=== PATIENT | female | born 1955 | race Caucasian/White ===

== ENCOUNTER 2017-10-01 12:23 | Outpatient (CLI) | payer OTHER ==
--- NOTE | 2017-10-01 13:15 | MMO ---
BILATERAL SCREENING MAMMOGRAM: DATE: 10/01/17 HISTORY: 62-year-old female for baseline screening mammography. COMPARISON: None. FINDINGS: Bilateral MLO and CC views of the breasts show heterogeneously dense breast parenchyma, which may low er the sensitivity of mammography. There is no evidence of suspicious mass, suspicious cluster of michelle rocalcifications, or area of architectural distortion. Interpretation of this mammogram was performed with the assistance of computer-aided detection. IMPRESSION: BIRADS 1: Negative Annual screening mammography is recommended. POS: SEVERO
== END 2017-10-01 12:24 | disposition home or self-care (01) ==
LOC: SCSMAMMO 12:23
PROVIDERS: ATTEND Family Medicine
DX: Z12.31 Encounter for screening mammogram for malignant neoplasm of breast (principal)
CPT/HCPCS: 77067

== ENCOUNTER 2017-12-19 11:59 | Inpatient (IN) | payer OTHER ==
[2017-12-19] MEDS ORDERED: Dexamethasone 10 MG/ML VIAL ONE (12:39)
[2017-12-19 12:52] LABS: Band 18 % (5-11); Hemoglobin 12.2 g/dL (12.0-16.0); Lymphocytes 5 % (21-51); MDiff Complete? YES; Mean Corpuscular HGB CONC 35.4 g/dL (32.0-36.0); Mean Corpuscular Hemoglobin 31.2 pg (27.0-31.0); Mean Corpuscular Volume 87.9 fL (78.0-98.0); Mean Platelet Volume 6.8 fL (7.4-10.4); Monocytes 28 % (0-10); Neutrophil 47 % (42-75); PLT Morphology Comment Appears Adequate; Platelet Count 241 thou/uL (130-400); RBC Distribution Width 9.6 % (11.5-14.5); Reactive Lymphocytes 1 % (0-10); Red Blood Cell (RBC) Count 3.92 mill/uL (4.20-5.40); White Blood Cell (WBC) Count 3.8 thou/uL (4.8-10.8)
[2017-12-19 12:55] LABS: ALT (SGPT) 17 U/L (8-55); AST (SGOT) 19 U/L (5-34); Albumin 3.7 g/dL (3.4-4.8); Alkaline Phosphatase 58 U/L (40-150); Anion Gap 15 mmol/L (10-20); BUN (Urea Nitrogen) 19 mg/dL (9.8-20.1); Bilirubin, Total 0.6 mg/dL (0.2-1.2); Calc. Creatinine Clearance 0 mL/min (70-130); Calcium 9.2 mg/dL (7.8-10.44); Carbon Dioxide 23 mmol/L (23-31); Chloride 95 mmol/L (98-107); Estimated GFR-MDRD 69; Globulin 3.2 g/dL (2.4-3.5); Glucose 111 mg/dL (80-115); Lipase 20 U/L (8-78); Potassium 3.2 mmol/L (3.5-5.1); Protein, Total 6.9 g/dL (6.0-8.3); Sodium 130 mmol/L (136-145)
[2017-12-19] MEDS ORDERED: D5 1/2 NS w/40 mEq KCL 1,000 ML IV SCH (15:30)
[2017-12-19] MEDS ORDERED: Senokot 8.6 MG TAB PO PRN (17:36)
[2017-12-19] MEDS ORDERED: Milk Of Magnesia 30 ML UDCUP PO PRN (17:36)
[2017-12-19] MEDS: Fluconazole In NaCl,Iso-Osm 100 MG IVPB SCH (18:12)
[2017-12-19] MEDS: Aluminum & Magnesium Hydroxide 60 ML, Lidocaine 2% Viscous Solution 30 ML, diphenhydrAM... SSW PRN (19:05)
[2017-12-19] MEDS: D5 NS w/ 40 mEq KCl 1,000 ML IV SCH (19:44)
[2017-12-19] MEDS: Acyclovir 200 mg Capsule PO SCH (19:46)
--- NOTE | 2017-12-19 20:13 | HP ---
DATE OF ADMISSION: 12/19/2017 PRIMARY CARE PHYSICIAN: Dr. Yoon Palomo. PRIMARY DRY ROOM ATTENDANT: Dr. Dias. CHIEF COMPLAINT: Near syncopal episode. HISTORY OF PRESENT ILLNESS: The patient is a 62-year-old female with systemic lupus erythematosus, o n chronic steroids and Plaquenil, presented to the emergency room with above complaints. The patient was on Benlysta weekly for a total of 4 weeks until 2 weeks ago. Over the last 2 weeks, the patient has severe difficulty with swallowing or taking p.o. fluid. She has also lost significant weight. Overall, she has lost 25 pounds over the last 6 months. Over the last 2 weeks, she started with oral ulcerations that is progressively getting worse. She tried lidocaine rinse that only transiently he ld. Two days ago, she was started on nystatin. This morning, she had a near syncopal episode while she was taking a shower. She almost blacked out. No significant injuries reported. She denies any chest pain, palpitations or focal neurologic deficit. She then was brought into the emergency room. In the emergency room, her initial blood pressure was 79/50. She received 2 liters of IV fluid along with 5 mg Decadron. The patient denies any fever, chills, joint pain or morning stiffness. No naus ea, vomiting, or abdominal pain reported. Her bowel movements are normally loose. She denies any ot her skin rash. PAST MEDICAL HISTORY: 1. Systemic lupus erythematosus. 2. History of herpes zoster last year. 3. Irritable bowel syndrome. 4. Raynaud's phenomena. 5. Anxiety and depression. PAST SURGICAL HISTORY: 1. Hysterectomy at the age of 43. 2. section at age of 23. ALLERGIES: The patient is allergic to PENICILLIN and SULFA. CURRENT HOME MEDICATIONS: The patient is currently on Plaquenil and prednisone. She is unable to re call the exact dosages of those medications. FAMILY HISTORY: Father with abdominal aneurysm. Mother has melanoma of the salivary gland. SOCIAL HISTORY: She is a former smoker. She drinks alcohol occasionally. She lives alone and has g ood family support. CODE STATUS: She is FULL CODE and makes her own decision with the help of her family. REVIEW OF SYSTEMS: The following complete review of systems was negative, unless otherwise mentioned in the HPI or below: Constitutional: Weight loss or gain, ability to conduct usual activities. Skin: Rash, itching. Eyes: Double vision, pain. ENT/Mouth: Nose bleeding, neck stiffness, pain, tenderness. Cardiovascular: Palpitations, dyspnea on exertion, orthopnea. Respiratory: Shortness of breath, wheezing, cough, hemoptysis, fever or night sweats. Gastrointestinal: Poor appetite, abdominal pain, heartburn, nausea, vomiting, constipation, or diarrhea. Genitourinary: Urgency, frequency, dysuria, nocturia. Musculoskeletal: Pain, swelling. Neurologic/Psychiatric: Anxiety, depression. Allergy/Immunologic: Skin rash, bleeding tendency. PHYSICAL EXAMINATION: VITAL SIGNS: In the emergency room showed temperature 98.8, respirations 16, pulse of 80, blood pres sure 79/50 with O2 saturation of 100% on room air. GENERAL: A 62-year-old female in mild distress due to discomfort over her lips and in her mouth. HEENT: Head atraumatic, normocephalic. Sclerae are anicteric. Erythematous lip with 2 or 3 vesicul ar lesions on the upper lip. There were white patches inside her mouth and on the tongue. She was u nable to open her mouth wide to visualize pharynx. NECK: Supple, no JVD, no carotid bruit. No lymph nodes noted. LUNGS: Clear to auscultation bilaterally. No wheezing, rales or rhonchi. HEART: S1, S2 present. Regular rate and rhythm. No rubs or gallops. ABDOMEN: Soft, nontender, bowel sounds present. EXTREMITIES: No edema or calf tenderness. NEUROLOGIC: Grossly nonfocal, moves all four extremities. PSYCHIATRY: Alert, awake, oriented x3. SKIN: Warm and dry. LYMPH NODES: No palpable lymph nodes in the neck. PERIPHERAL VASCULAR: Radial pulses palpable bilaterally. MUSCULOSKELETAL: No joint swelling or tenderness. LABORATORY DATA: CBC showed WBC 3.8 with hemoglobin 12.2, hematocrit 34.4, platelet count of 241 wit h 18% bandemia. Chemistry showed sodium 130, potassium 3.2, chloride 95, bicarbonate 23, BUN 19, cre atinine 0.84. LFTs in normal range. Lactic acid was 0.9. IMPRESSION: 1. Near syncopal episode, probably secondary to hypotension. 2. Oral lesion consistent with candidiasis. Herpes labialis is also a possibility. 3. Inability to tolerate oral intake causing dehydration and significant weight loss. 4. Leukopenia with 18% bandemia and significant monocytosis. 5. Hyponatremia, suspected secondary to hypovolemia. 6. Hypokalemia. 7. Systemic lupus erythematosus, on chronic steroids and Plaquenil. 8. Irritable bowel syndrome. 9. Depression without any suicidal ideation. PLAN: The patient will be monitored on the medical floor. Infectious Disease will be consulted. I discussed the case with the patient's literacy coordinator, Dr. Dias, as well as Infectious Disease, Dr. Dilip hanna. We will start her on fluconazole along with nystatin topical for oral candidiasis. We will em pirically start her on low dose acyclovir for possible herpes labialis. We will continue prednisone and Plaquenil. This was confirmed with Dr. Dias. We will continue IV hydration. We will replace p otassium. We will repeat labs in a.m. We will check orthostatic vitals in a.m. We will get a skin culture per Infectious Disease recommendation. Plan of care was discussed with the patient. She stated understanding.
[2017-12-19] MEDS: Nystatin 500,000 UNITS/5 ML UDCUP SSW SCH (21:45)
[2017-12-19] MEDS: Famotidine 20 MG TAB PO SCH (21:45)
[2017-12-20] MEDS: Acyclovir 200 mg Capsule PO SCH ×3 (00:38→14:00)
[2017-12-20] MEDS: D5 NS w/ 40 mEq KCl 1,000 ML IV SCH (04:00)
[2017-12-20 04:24] LABS: ALT (SGPT) 11 U/L (8-55); AST (SGOT) 11 U/L (5-34); Albumin 3.1 g/dL (3.4-4.8); Alkaline Phosphatase 50 U/L (40-150); Anion Gap 12 mmol/L (10-20); BUN (Urea Nitrogen) 11 mg/dL (9.8-20.1); Bilirubin, Total 0.3 mg/dL (0.2-1.2); Calc. Creatinine Clearance 76 mL/min (70-130); Calcium 7.9 mg/dL (7.8-10.44); Carbon Dioxide 20 mmol/L (23-31); Chloride 105 mmol/L (98-107); Estimated GFR-MDRD Greater than 90; Globulin 2.7 g/dL (2.4-3.5); Glucose 176 mg/dL (80-115); Magnesium 1.8 mg/dL (1.6-2.6); Potassium 4.3 mmol/L (3.5-5.1); Protein, Total 5.8 g/dL (6.0-8.3); Sodium 133 mmol/L (136-145)
[2017-12-20 04:37] LABS: Band 34 % (5-11); Hemoglobin 10.6 g/dL (12.0-16.0); Lymphocytes 6 % (21-51); MDiff Complete? YES; Mean Corpuscular HGB CONC 35.5 g/dL (32.0-36.0); Mean Corpuscular Hemoglobin 33.2 pg (27.0-31.0); Mean Corpuscular Volume 93.7 fL (78.0-98.0); Monocytes 15 % (0-10); Neutrophil 45 % (42-75); Platelet Count 244 thou/uL (130-400); RBC Distribution Width 10.7 % (11.5-14.5); Red Blood Cell (RBC) Count 3.19 mill/uL (4.20-5.40); White Blood Cell (WBC) Count 2.7 thou/uL (4.8-10.8)
[2017-12-20] MEDS: Dextrose 5 %-0.45 % NaCl 1,000 ML IV SCH ×2 (09:13→17:51)
[2017-12-20] MEDS: Nystatin 500,000 UNITS/5 ML UDCUP SSW SCH ×4 (09:15→21:57)
[2017-12-20] MEDS: Aluminum & Magnesium Hydroxide 60 ML, Lidocaine 2% Viscous Solution 30 ML, diphenhydrAM... SSW PRN ×3 (09:16→17:45)
[2017-12-20] MEDS: Hydroxychloroquine Sulfate 200 MG TAB PO SCH (09:17)
[2017-12-20] MEDS: Famotidine 20 MG TAB PO SCH ×2 (09:17→21:56)
[2017-12-20] MEDS: predniSONE 5 MG TAB PO SCH (09:17)
[2017-12-20] MEDS: K-Phos Neutral 250 MG TAB PO SCH ×2 (14:00→17:45)
[2017-12-20 16:28] LABS: Bilirubin Negative (Negative); Blood, Urine Small (Negative); Clarity CLEAR (Clear); Glucose, Urine (Dipstick) Negative (Negative); Leukocyte Moderate (Negative); Nitrite Negative (Negative); Protein, Urine (Dipstick) Trace mg/dL (Neg-Trace); Specific Gravity, Urine 1.016 (1.002-1.036); Urobilinogen 0.2 mg/dL (0.2-1.0)
[2017-12-20 16:31] LABS: Bacteria/HPF None Seen HPF (None Seen); Hyaline Casts/LPF 4-6 HYALINE CAST LPF (0-3 Hyaline); Pathc Cast-AUWi Flag 0.72 (0-2.49); Squamous Epithelial 0-3 HPF (0-3)
[2017-12-20 16:35] LABS: Renal Epithelial None Seen HPF (0-3); Transitional Epithelial NONE SEEN HPF (0-3)
[2017-12-20] MEDS: Fluconazole In NaCl,Iso-Osm 100 MG IVPB SCH (17:44)
[2017-12-20] MEDS: ACYCLOVIR SODIUM IVPB SCH (21:57)
[2017-12-20] MEDS: SODIUM CHLORIDE 0.9% IVPB SCH (21:57)
--- NOTE | 2017-12-20 22:40 | PDOC.PN ---
- Subjective Encounter Start Date: 12/20/17 Encounter Start Time: 14:00 Patient seen and examined for Hypotension/Oral lesions. No new complaints. Poor appetite. No overnight events - Objective Resuscitation Status: Resuscitation Status FULL:Full Resuscitation MAR Reviewed: Yes Vital Signs & Weight: Vital Signs (12 hours) Temp Pulse Resp BP Pulse Ox 12/20/17 20:00 98.3 F 68 18 131/68 99 12/20/17 16:00 97.8 F 68 18 107/67 99 12/20/17 11:00 97.9 F 69 18 108/64 100 Weight Weight 109 lb I&O: 12/19/17 12/20/17 12/21/17 06:59 06:59 06:59 Intake Total 1850 Balance 1850 Result Diagrams: 12/20/17 03:16 12/20/17 03:16 Phys Exam - Physical Examination Constitutional: NAD HEENT: moist MMs improvement of erythema over upper lip. Respiratory: no wheezing, no rhonchi Cardiovascular: RRR, no rub Gastrointestinal: soft, non-tender, positive bowel sounds Musculoskeletal: no edema Neurological: moves all 4 limbs Dx/Plan - Plan DVT proph w/SCDs IMPRESSION: 1. Near syncopal episode, probably secondary to hypotension. 2. Oral lesion consistent with candidiasis/Herpes labialis. 3. Inability to tolerate oral intake causing dehydration and significant weight loss. 4. Leukopenia with bandemia and significant monocytosis. 5. Hyponatremia- impoving 6. Hypokalemia/Hypophosphatemia 7. Systemic lupus erythematosus, on chronic steroids and Plaquenil. 8. Irritable bowel syndrome. 9. Depression without any suicidal ideation. PLAN: Cont Fluconazole Patient refusing Nystatin - causes more mouth irritation Replace Phosphorus Adjust IVF AM labs Await ID input Cont Acyclovir Laboratory Tests 12/20/17 03:16 Phosphorus 2.0 L Review of Systems - Review of Systems Cardiovascular: negative: chest pain, palpitations, orthopnea, paroxysmal nocturnal dyspnea, edema, light headedness, other Gastrointestinal: negative: Nausea, Vomiting, Abdominal Pain, Diarrhea, Constipation, Melena, Hematochezia, Other - Medications/Allergies Allergies/Adverse Reactions: Allergies Allergy/AdvReac Type Severity Reaction Status Date / Time Penicillins Allergy Verified 12/19/17 15:47 Sulfa (Sulfonamide Allergy Verified 09/15/18 15:47 Antibiotics) bacitracin AdvReac Intermediate Rash Verified 12/20/17 10:47 Medications: Current Medications Acetaminophen (Tylenol) 650 mg PO Q4H PRN PRN Reason: Headache/Fever or Pain Al Hydroxide/Mg Hydroxide 60 ml/ Lidocaine HCl 30 ml/Diphenhydramine HCl 75 mg 0 ml SSW PRN PRN PRN Reason: Mouth Irritation Last Admin: 12/20/17 17:45 Dose: 10 ml Famotidine (Pepcid) 20 mg PO BID [facility] Last Admin: 12/20/17 21:56 Dose: 20 mg Hydroxychloroquine Sulfate (Plaquenil) 300 mg PO DAILY [facility] Last Admin: 12/20/17 09:17 Dose: 300 mg Fluconazole/Sodium Chloride 100 mg/ Miscellaneous Medication 1 each/ Device 50 mls @ 100 mls/hr IVPB 1800 [facility] Last Admin: 12/20/17 17:44 Dose: 50 mls Dextrose/Sodium Chloride (D5 1/2 Ns) 1,000 mls @ 100 mls/hr IV .Q10H [facility] Last Admin: 12/20/17 17:51 Dose: 1,000 mls Acyclovir Sodium 330 mg/ (Sodium Chloride) 106.6 mls @ 106.6 mls/hr IVPB Q8HR [facility] Last Admin: 12/20/17 21:57 Dose: 106.6 mls Magnesium Hydroxide (Milk Of Magnesium) 30 ml PO DAILYPRN PRN PRN Reason: Constipation Phosphorus (Kphos Neutral) 500 mg PO TID-WM [facility] Last Admin: 12/20/17 17:45 Dose: 500 mg Prednisone (Prednisone) 5 mg PO DAILY [facility] Last Admin: 12/20/17 09:17 Dose: 5 mg Senna (Senokot) 2 tab PO HSPRN PRN PRN Reason: Constipation
[2017-12-20] MEDS ORDERED: diphenhydrAMINE 25 MG CAP PO PRN (23:09)
[2017-12-20] MEDS: Ketorolac Tromethamine 30 MG/ML VIAL IVP PRN (23:48)
--- NOTE | 2017-12-21 04:24 | CON ---
DATE OF CONSULTATION: 12/20/2017 REASON FOR CONSULTATION: Mouth ulcers. HISTORY OF PRESENT ILLNESS: A 62-year-old who has a history of systemic lupus erythematosus, recently diagnosed, mostly with joint involvement, previously on low dose prednisone and Plaquenil, recently started on Benlysta, which is a B- cell monoclonal antibody, which inhibits the activation of B cells. Over the past 2 weeks, she developed stomatitis quite severe, which has hindered oral intake, which led to weight loss and volume depletion and eventually the patient developed hypotension and syncopal event and was admitted. Initial BP 79/50, given IV fluids and some Decadron. No headaches, visual symptoms. No odynophagia. Most of the pain is in the anterior oral cavity. Some joint pains , but not out of the ordinary, but not much in terms of back pain. No sputum production or cough, no dyspnea, no chest pain, no abdominal pain or diarrhea. No genitourinary symptoms. No neurological symptoms. PAST MEDICAL HISTORY: SLE with mostly joint manifestations, prior history of herpes zoster, irritable bowel syndrome, Raynaud's phenomenon, anxiety, depression. PAST SURGICAL HISTORY: Hysterectomy, . ALLERGIES: Include PENICILLIN and SULFA DRUGS with skin reactions. CURRENT MEDICATIONS: Acyclovir, famotidine, fluconazole, hydroxychloroquine, nystatin, phosphorus, prednisone, Senokot. PHYSICAL EXAMINATION: VITAL SIGNS: T-max 97.9, blood pressure 108/64, pulse 69, respirations 18, O2 sat 100%. SKIN: Shows the mouth and the left earlobe lesions. She has those areas of pustules in the earlobe, which she has had in the past and has ascribed to the SLE. She also has two blisters in the back and she has a lot of blisters in the lips with stomatitis in the anterior mouth. She could not open the mouth very well because of cheilitis and blistering in the anterior oral cavity. No other skin lesions. No lymphadenopathy. HEENT: Ocular movements conjugate. Sclerae are white. Pupils are equal. Conjunctivae are normal. Nasal passages patent. NECK: Supple. No jugular venous distention. LUNGS: With symmetric air entry. No wheezing or crackles. HEART: S1, S2, regular rate. No S3, S4. ABDOMEN: Soft, not distended or tender. No ascites. No bladder distention. EXTREMITIES: No joint inflammatory activity at this time. Moves all extremities equally. Pulses 1+ in dorsalis pedis. NEUROLOGIC: Plantar responses are flexor. Awake, oriented, follows commands. LABORATORY DATA: White cell count 3.8, hemoglobin 12, platelets 241,000 with 47 % neutrophils and 18% bands. Chemistry with a creatinine of 0.84. Liver profile normal. Albumin 3.7. Sodium 130. Cultures from the oral cavity are pending. No imaging studies submitted. ASSESSMENT: Systemic lupus erythematosus, mostly with joint involvement, associated with severe stomatitis, a few areas of blisters in the back area and left earlobe inflammatory process with blisters as well. DISCUSSION: Differential diagnosis includes herpes simplex infection as the more likely scenario. Superimposed fungal infection is not ruled out in the posterior oropharynx, although less likely. Side effect of the medication is less likely as well. We will switch acyclovir to the IV administration schedule. Submit viral PCR from the oral cavity for herpes simplex and herpes zoster from the earlobe. Enteroviral infection appears to be less likely. We will submit the herpes simplex and zoster PCR from the oral cavity and the earlobe and switch acyclovir and Diflucan to the intravenous route. MTDD
[2017-12-21 05:42] LABS: Hemoglobin 10.1 g/dL (12.0-16.0); Mean Corpuscular HGB CONC 34.2 g/dL (32.0-36.0); Mean Corpuscular Hemoglobin 32.2 pg (27.0-31.0); Mean Platelet Volume 7.1 fL (7.4-10.4); Platelet Count 236 thou/uL (130-400); Red Blood Cell (RBC) Count 3.13 mill/uL (4.20-5.40); White Blood Cell (WBC) Count 2.8 thou/uL (4.8-10.8)
[2017-12-21 05:43] LABS: Band 22 % (5-11); Eosinophils 1 % (0-10); Lymphocytes 17 % (21-51); MDiff Complete? YES; Monocytes 20 % (0-10); Neutrophil 40 % (42-75)
[2017-12-21] MEDS: SODIUM CHLORIDE 0.9% IVPB SCH ×3 (05:44→21:19)
[2017-12-21] MEDS: ACYCLOVIR SODIUM IVPB SCH ×3 (05:44→21:19)
[2017-12-21] MEDS: Dextrose 5 %-0.45 % NaCl 1,000 ML IV SCH ×2 (05:44→18:19)
[2017-12-21 05:55] LABS: Anion Gap 9 mmol/L (10-20); BUN (Urea Nitrogen) 4 mg/dL (9.8-20.1); Calc. Creatinine Clearance 63 mL/min (70-130); Carbon Dioxide 25 mmol/L (23-31); Chloride 104 mmol/L (98-107); Estimated GFR-MDRD 82; Glucose 108 mg/dL (80-115); Magnesium 1.6 mg/dL (1.6-2.6); Phosphorus 2.3 mg/dL (2.3-4.7); Potassium 3.5 mmol/L (3.5-5.1); Sodium 134 mmol/L (136-145)
[2017-12-21] MEDS: Ketorolac Tromethamine 30 MG/ML VIAL IVP PRN (08:01)
[2017-12-21] MEDS: K-Phos Neutral 250 MG TAB PO SCH ×3 (08:46→16:52)
[2017-12-21] MEDS: Famotidine 20 MG TAB PO SCH ×2 (08:46→21:19)
[2017-12-21] MEDS: predniSONE 5 MG TAB PO SCH (08:46)
[2017-12-21] MEDS: Hydroxychloroquine Sulfate 200 MG TAB PO SCH (08:46)
[2017-12-21] MEDS ORDERED: Lidocaine 2% Jelly 5 ML TUBE TOP SCH (11:00)
[2017-12-21] MEDS ORDERED: Benzocaine 20% Spray 60 ML CAN PO SCH (11:00)
[2017-12-21] MEDS: Hydrocodone-Acetamin 15 ML UDCUP PO PRN ×2 (11:56→18:18)
[2017-12-21] MEDS ORDERED: Dexamethasone 20 MG/5 ML VIAL SLOW IVP SCH (12:45)
--- NOTE | 2017-12-21 12:52 | PDOC.EVN ---
Event Note - Event Note Event Note: Patient seen with Dr. 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 Dias, office was called, - may need biopsy at some point - infectious cause seems less likely at this point Full note from Dr. Orona to follow
--- NOTE | 2017-12-21 13:08 | CON ---
DATE OF CONSULTATION: 12/21/2017 REASON FOR CONSULTATION: The patient seen in consultation for evaluation of bleeding oral lesions. HISTORY OF PRESENT ILLNESS: This 62-year-old female who was diagnosed with a recent history of Susana ud's phenomena. She has currently been on anti-modulators. Her most recent of which was an injectio n anti-modulator. She received two injections and noticed she was developed an ulcerative lesions on the lips of the oral mucosa only. She also has been using bacitracin for these lesions which she do es have a SULFA allergy to. She reports using them for only probably 4-5 days. Regardless of this, over the past 2 weeks they have rapidly progressed to debilitating ulcers of the oral lips. She repo rts no problems with her voice or swallowing once she is able to get through past oral sips. At this time she has not had any significant oral intake in the past 5 days. She presented to the emergency room on Thursday for evaluation. They treated her with IV steroids. She noticed that she did have some improvement. PAST MEDICAL HISTORY: Autoimmune conditions/Raynaud's, ____ syndrome. PAST SURGICAL HISTORY: Noncontributory. ALLERGIES: SULFA. REVIEW OF SYSTEMS: Positive weight loss, decreased oral intake secondary to the above condition. Ot herwise, no fevers or chills. PULMONARY: No cough or wheeze. CARDIOVASCULAR: No chest pain, palpitations. PHYSICAL EXAMINATION: GENERAL: The patient is resting comfortably in bed. Her vocal quality is good. No stridor. There is extensive ulcerative lesions and mucositis present of the oral lips. This did not extend past the labial sulcus. The tongue, floor of mouth and oropharyngeal mucosa are all within normal limits. L eft ear had changes of erythema and ecchymoses and swelling along with blanching erythema of the skin and cartilage. Nasal cavity is clear. NECK: No lymphadenopathy or masses. ASSESSMENT: Acute severe oral mucositis likely related to medication side effect. PLAN: I recommend 1 dose of Decadron. I recommend they can consult with Dr. Dias regarding her imm unosuppressant medications and the appropriate dosage and use of steroids for this condition. We annemarie l be available for any other needs.
[2017-12-21] MEDS ORDERED: Senokot 8.6 MG TAB PO PRN (13:52)
[2017-12-21 15:01] VITALS: BMI 16.0
[2017-12-21 16:05] LABS: Complement-C4 4.6 mg/dL (15-57)
--- NOTE | 2017-12-21 17:14 | RAD ---
PORTABLE SUPINE AP ABDOMINAL RADIOGRAPH: Date: 12/21/17 HISTORY: Dobbhoff placement confirmation. FINDINGS: Dobbhoff feeding tube overlies the lower aspect of the mediastinum with tip overlying the expected lo cation of the distal esophagus. Bowel gas pattern is nonspecific with mild gaseous distention of the colon. Visualized lung bases are clear. IMPRESSION: Dobbhoff feeding tube noted in place with tip overlying the expected location of the distal esophagus . POS: SEVERO
[2017-12-21] MEDS: Fluconazole In NaCl,Iso-Osm 100 MG IVPB SCH (18:19)
--- NOTE | 2017-12-21 22:44 | PRG ---
DATE OF SERVICE: 12/21/2017 SUBJECTIVE: Has felt improvement over the past 24 hours, had quite a bit of bleeding overnight. This was mostly suctioned. Dr. Orona saw the patient and Dobhoff has been inserted for feeding. She denies any headaches, no visual symptoms. No cough or chest pain, no abdominal pain or diarrhea. No genitourinary symptoms. OBJECTIVE: VITAL SIGNS: T-max 98.4, blood pressure 112/72, pulse 75, respirations 18, O2 sat 98%. SKIN: Stomatitis still present, she is able to open a bit better the mouth today than yesterday. LUNGS: Clear. CARDIOVASCULAR: S1, S2, regular rate. ABDOMEN: Soft, not distended or tender. LABORATORY DATA: White cell count 2.8, hemoglobin 10.1, platelets 236. Sodium 134, creatinine 0.72, albumin 3.1 and complement C4 is 4.6. Staph aureus isolated from the lip, most likely colonization, not a true invasive process. ASSESSMENT AND DISCUSSION: Systemic lupus erythematosus, mostly with joint involvement associated with severe stomatitis. Differential diagnosis includes herpes simplex infection, superimposed fungal infection, possible side effect of the medication less likely, but not ruled out. Continue with acyclovir and IV Diflucan, PCR pending. MTDD
--- NOTE | 2017-12-21 23:22 | PDOC.PN ---
- Subjective Encounter Start Date: 12/21/17 Encounter Start Time: 16:00 Patient seen and examined for Syncope/Stomatitis. Unable to take PO. Oral bleeding controlled. No new complaints. Overnight events noted - Objective Resuscitation Status: Resuscitation Status FULL:Full Resuscitation MAR Reviewed: Yes Vital Signs & Weight: Vital Signs (12 hours) Temp Pulse Resp BP BP Pulse Ox 12/21/17 21:19 100 12/21/17 20:00 97.6 F 62 20 124/71 100 12/21/17 12:00 98.7 F 75 18 112/72 98 Weight Admit Weight 109 lb Weight 109 lb I&O: 12/20/17 12/21/17 12/22/17 06:59 06:59 06:59 Intake Total 3100 30 Output Total 30 Balance 3070 30 Result Diagrams: 12/22/17 03:39 12/22/17 03:39 Phys Exam - Physical Examination Constitutional: NAD HEENT: PERRLA, sclera anicteric erythematous oral mucous membrane with recent bleeding Respiratory: no wheezing, no rhonchi Cardiovascular: RRR, no rub Gastrointestinal: soft, non-tender, positive bowel sounds Musculoskeletal: no edema Neurological: moves all 4 limbs Dx/Plan - Plan out of bed/ambulate, DVT proph w/SCDs IMPRESSION: 1. Near syncopal episode, probably secondary to hypotension. No new episode 2. Stomatitis consistent with candidiasis/Herpes labialis. 3. Severe protein Calorie Malnutrition. 4. Leukopenia with bandemia and significant monocytosis. 5. Hyponatremia- impoving 6. Hypokalemia/Hypophosphatemia 7. Systemic lupus erythematosus, on chronic steroids and Plaquenil. 8. Irritable bowel syndrome. 9. Depression without any suicidal ideation. PLAN: Cont Fluconazole/Acyclovir NG tube due to poor nutritional status AM labs ID/ENT input appreciated Receiving IVPB Decadron Await Rheum input Check ESR, CRP, C3 and C4 Review of Systems - Review of Systems Respiratory: negative: Cough, Dry, Shortness of Breath, Hemoptysis, SOB with Excertion, Pleuritic Pain, Sputum, Wheezing Cardiovascular: negative: chest pain, palpitations, orthopnea, paroxysmal nocturnal dyspnea, edema, light headedness, other Gastrointestinal: negative: Nausea, Vomiting, Abdominal Pain, Diarrhea, Constipation, Melena, Hematochezia, Other Genitourinary: negative: Dysuria, Frequency, Incontinence, Hematuria, Retention , Other - Medications/Allergies Allergies/Adverse Reactions: Allergies Allergy/AdvReac Type Severity Reaction Status Date / Time Penicillins Allergy Verified 12/19/17 15:47 Sulfa (Sulfonamide Allergy Verified 12/19/17 15:47 Antibiotics) bacitracin AdvReac Intermediate Rash Verified 12/20/17 10:47 Medications: Current Medications Acetaminophen (Tylenol) 650 mg PO Q4H PRN PRN Reason: Headache/Fever or Pain Hydrocodone Bitart/Acetaminophen (Hydrocodone-Apap 7.5-325/15) 10 ml PO Q6H PRN PRN Reason: Moderate Pain (4-6) Last Admin: 12/21/17 18:18 Dose: 10 ml Al Hydroxide/Mg Hydroxide 60 ml/ Lidocaine HCl 30 ml/Diphenhydramine HCl 75 mg 0 ml SSW PRN PRN PRN Reason: Mouth Irritation Last Admin: 12/20/17 17:45 Dose: 10 ml Diphenhydramine HCl (Benadryl) 25 mg PO Q6H PRN PRN Reason: Itching & Insomnia Famotidine (Pepcid) 20 mg PO BID [facility] Last Admin: 12/21/17 21:19 Dose: 20 mg Fluconazole/Sodium Chloride 100 mg/ Miscellaneous Medication 1 each/ Device 50 mls @ 100 mls/hr IVPB 1800 [facility] Last Admin: 12/21/17 18:19 Dose: 50 mls Dextrose/Sodium Chloride (D5 1/2 Ns) 1,000 mls @ 100 mls/hr IV .Q10H [facility] Last Admin: 12/21/17 18:19 Dose: 1,000 mls Acyclovir Sodium 330 mg/ (Sodium Chloride) 106.6 mls @ 106.6 mls/hr IVPB Q8HR [facility] Last Admin: 12/21/17 21:19 Dose: 106.6 mls Magnesium Hydroxide (Milk Of Magnesium) 30 ml PO DAILYPRN PRN PRN Reason: Constipation Phosphorus (Kphos Neutral) 500 mg PO TID-[facility] Last Admin: 12/21/17 16:52 Dose: Not Given Prednisone (Prednisone) 5 mg PO DAILY [facility] Last Admin: 12/21/17 08:46 Dose: Not Given Senna (Senokot) 2 tab PO HSPRN PRN PRN Reason: Constipation Sodium Chloride (Flush - Normal Saline) 10 ml IVF Q12HR [facility] Last Admin: 12/21/17 21:19 Dose: Not Given Sodium Chloride (Flush - Normal Saline) 10 ml IVF PRN PRN PRN Reason: Saline Flush
[2017-12-22] MEDS: Hydrocodone-Acetamin 15 ML UDCUP PO PRN ×4 (02:48→23:53)
[2017-12-22 05:03] LABS: #Lymphocytes 0.3 thou/uL (1.20-3.40); #Monocytes 0.3 thou/uL (0.11-0.59); #Neutrophils 1.6 thou/uL (1.40-6.50); %Basophils 0.3 % (0.0-1.0); %Eosinophils 0.5 % (0.0-10.0); %Lymphocytes 11.9 % (21.0-51.0); %Monocytes 11.9 % (0.0-10.0); %Neutrophils 75.4 % (42.0-75.0); Hemoglobin 10.7 g/dL (12.0-16.0); Mean Corpuscular HGB CONC 34.5 g/dL (32.0-36.0); Mean Corpuscular Hemoglobin 32.8 pg (27.0-31.0); Mean Platelet Volume 7.4 fL (7.4-10.4); Platelet Count 288 thou/uL (130-400); RBC Distribution Width 10.9 % (11.5-14.5); Red Blood Cell (RBC) Count 3.28 mill/uL (4.20-5.40); White Blood Cell (WBC) Count 2.1 thou/uL (4.8-10.8)
[2017-12-22 05:21] LABS: Troponin I Less than 0.010 ng/mL (< 0.028)
[2017-12-22 05:44] LABS: Albumin 3.2 g/dL (3.4-4.8); Anion Gap 15 mmol/L (10-20); BUN (Urea Nitrogen) 8 mg/dL (9.8-20.1); BUN/Creatinine Ratio 12.31; Calc. Creatinine Clearance 70 mL/min (70-130); Calcium 8.3 mg/dL (7.8-10.44); Carbon Dioxide 21 mmol/L (23-31); Chloride 101 mmol/L (98-107); Estimated GFR-MDRD Greater than 90; Glucose 200 mg/dL (80-115); Magnesium 1.7 mg/dL (1.6-2.6); Phosphorus 3.4 mg/dL (2.3-4.7); Potassium 3.3 mmol/L (3.5-5.1); Sodium 134 mmol/L (136-145)
[2017-12-22] MEDS: SODIUM CHLORIDE 0.9% IVPB SCH ×3 (06:19→20:35)
[2017-12-22] MEDS: ACYCLOVIR SODIUM IVPB SCH ×3 (06:19→20:35)
[2017-12-22] MEDS: Dextrose 5 %-0.45 % NaCl 1,000 ML IV SCH (06:20)
[2017-12-22] MEDS: Famotidine 20 MG TAB PO SCH ×2 (08:23→20:35)
[2017-12-22] MEDS: K-Phos Neutral 250 MG TAB PO SCH ×3 (08:23→15:15)
[2017-12-22] MEDS: predniSONE 5 MG TAB PO SCH (08:23)
[2017-12-22] MEDS: NS 0.9% w/ 40 MEQ KCL 1,000 ML IV SCH (08:39)
--- NOTE | 2017-12-22 15:53 | PQF ---
CLINICAL DOCUMENTATION IMPROVEMENT CLARIFICATION FORM: ICD-10 Updated PLEASE DO AN ADDENDUM TO THE PROGRESS NOTE WITH ANY DOCUMENTATION UPDATES OR ADDITIONS AND CARRY THROUGH TO DC SUMMARY. THANK YOU. Date: 12/22/17 ATTN: Dr. Valles Please exercise your independent, professional judgment in responding to the clarification form. Clinical indicators are provided on the bottom of this form for your review Please check appropriate box(s): [ ] Protein Calorie Malnutrition: [ ] Mild [ ] Moderate [ ] Severe [ ] Other Malnutrition [ ] Underweight without malnutrition [ ] Other diagnosis [ ] Unable to determine In addition, please specify: Present on Admission (POA): [ ] Yes [ ] No [ ] Unable to determine CLINICAL INDICATORS - SIGNS / SYMPTOMS / LABS H&P 12/19: OVER LAST 2 WEEKS, PT HAS SEVERE DIFFICULTY WITH SWALLOWING OR TAKING PO FLUID. OVERALL SHE HAS LOST 25 POUNDS OVER THE LAST 6 MONTHS. LNA ASSESSMENT 12/21: BMI 16.0 SUBOPTIMAL ORAL INTAKE R/T INABILITY TO CONSUME SUFFICIENT ENERGY EVIDENCED BY: MOUTH SORES THAT MAKE EATING PAINFUL AND 17% LAST 3 MEALS CONSUMED RISKS: H&P 12/19: HX OF SYSTEMIC LUPUS ERYTHEMATOSUS. HX OF HERPES ZOSTER LAST YEAR. PN 12/21: STOMATITIS CONSISTENT WITH CANDIDIASIS/HERPES LABIALIS TREATMENT: LNA ASSESSMENT 12/21: TRIGGER FOR PO, BMI 17.1 WCC CPOE 12/20: SUPPLEMENT: ENSURE ENLIVE TID Moderate Malnutrition (in acute illness) Energy Intake: <75% of estimated energy requirement for > 7 days Weight Loss: 1-2%/1 week; 5%/ 1 month; 7.5%/3 months Other: mild body fat loss; mild muscle mass loss; mild fluid accumulation; Severe Malnutrition (in acute illness) Energy Intake: < 50% of estimated energy requirement for > 5 days Weight Loss: >1-2%/1 week; >5%/1 month; >7.5%/3 months Other: moderate body fat loss; moderate muscle mass loss; moderate- severe fluid accumulation; measurably reduced soft iron inspector strength Moderate Malnutrition (in chronic illness) Energy Intake: <75% of estimated energy requirement for >1 month Weight Loss: 5%/1 month; 7.5%/3 months; 10%/6 months; 20%/1 year Other: mild body fat loss; mild muscle mass loss; mild fluid accumulation Severe Malnutrition (in chronic illness) Energy Intake: <75% of estimated energy requirement for >1 month Weight Loss: >5%/1 month; >7.5%/3 months; >10%/6 months; >20%/1 year Other: severe body fat loss; severe muscle mass loss; severe fluid accumulation; measurably reduced soft iron inspector strength Thank you, Aleksandra (This form is maintained as a part of the permanent medical record) 2014 [employer]. All Rights Reserved Aleksandra Valadez RN, BSN [email or web address] Office: [phone] [facility] CENTERMartinez
[2017-12-22] MEDS: Fluconazole In NaCl,Iso-Osm 100 MG IVPB SCH (17:03)
[2017-12-22] MEDS: Acetaminophen 325 MG TAB PO PRN (20:40)
--- NOTE | 2017-12-22 23:25 | PDOC.PN ---
- Subjective Encounter Start Date: 12/22/17 Encounter Start Time: 16:00 Patient seen and examined for Stomatitis. No new complaints. No overnight events - Objective Resuscitation Status: Resuscitation Status FULL:Full Resuscitation MAR Reviewed: Yes Vital Signs & Weight: Vital Signs (12 hours) Temp Pulse Resp BP Pulse Ox 12/22/17 20:00 97.7 F 68 18 156/70 H 96 12/22/17 16:00 97.6 F 65 18 128/61 98 Weight Admit Weight 109 lb Weight 109 lb I&O: 12/21/17 12/22/17 12/23/17 06:59 06:59 06:59 Intake Total 3100 1969 90 Output Total 30 Balance 3070 1969 90 Result Diagrams: 12/22/17 03:39 12/22/17 03:39 Phys Exam - Physical Examination Constitutional: NAD HEENT: moist MMs improving erythema of the lips, No active bleeding Respiratory: no wheezing, no rhonchi Cardiovascular: RRR, no rub Gastrointestinal: soft, positive bowel sounds Musculoskeletal: no edema Neurological: moves all 4 limbs Dx/Plan - Plan out of bed/ambulate, DVT proph w/SCDs IMPRESSION: 1. Near syncopal episode, probably secondary to hypotension. 2. Stomatitis consistent with candidiasis/Herpes labialis. 3. Severe protein Calorie Malnutrition - on tube feeds 4. Leukopenia with bandemia and significant monocytosis. 5. Hyponatremia- impoving 6. Hypokalemia/Hypophosphatemia 7. Systemic lupus erythematosus with possible exacerbation. 8. Irritable bowel syndrome. 9. Depression without any suicidal ideation. PLAN: Cont Fluconazole/Acyclovir Plaquenil dced Cont tube feed Replace Potassium Cont Decadron per Rheum Review of Systems - Review of Systems Cardiovascular: negative: chest pain, palpitations, orthopnea, paroxysmal nocturnal dyspnea, edema, light headedness, other Gastrointestinal: negative: Nausea, Vomiting, Abdominal Pain, Diarrhea, Constipation, Melena, Hematochezia, Other - Medications/Allergies Allergies/Adverse Reactions: Allergies Allergy/AdvReac Type Severity Reaction Status Date / Time Penicillins Allergy Verified 12/19/17 15:47 Sulfa (Sulfonamide Allergy Verified 12/19/17 15:47 Antibiotics) bacitracin AdvReac Intermediate Rash Verified 12/20/17 10:47 Medications: Current Medications Acetaminophen (Tylenol) 650 mg PO Q4H PRN PRN Reason: Headache/Fever or Pain Last Admin: 12/22/17 20:40 Dose: 650 mg Hydrocodone Bitart/Acetaminophen (Hydrocodone-Apap 7.5-325/15) 10 ml PO Q6H PRN PRN Reason: Moderate Pain (4-6) Last Admin: 12/22/17 17:02 Dose: 10 ml Al Hydroxide/Mg Hydroxide 60 ml/ Lidocaine HCl 30 ml/Diphenhydramine HCl 75 mg 0 ml SSW PRN PRN PRN Reason: Mouth Irritation Last Admin: 12/20/17 17:45 Dose: 10 ml Diphenhydramine HCl (Benadryl) 25 mg PO Q6H PRN PRN Reason: Itching & Insomnia Famotidine (Pepcid) 20 mg PO BID [facility] Last Admin: 12/22/17 20:35 Dose: 20 mg Fluconazole/Sodium Chloride 100 mg/ Miscellaneous Medication 1 each/ Device 50 mls @ 100 mls/hr IVPB 1800 [facility] Last Admin: 12/22/17 17:03 Dose: 50 mls Acyclovir Sodium 330 mg/ (Sodium Chloride) 106.6 mls @ 106.6 mls/hr IVPB Q8HR [facility] Last Admin: 12/22/17 20:35 Dose: 106.6 mls Potassium Chloride/Sodium Chloride (Ns 0.9% W/ 40 Meq Kcl) 1,000 mls @ 50 mls/ hr IV .Q20H [facility] Last Admin: 12/22/17 08:39 Dose: 1,000 mls Dexamethasone 16 mg/ Sodium (Chloride) 54 mls @ 162 mls/hr SLOW IVP 1000 [facility] Stop: 12/23/17 10:19 Last Admin: 12/22/17 10:08 Dose: 54 mls Magnesium Hydroxide (Milk Of Magnesium) 30 ml PO DAILYPRN PRN PRN Reason: Constipation Phosphorus (Kphos Neutral) 500 mg PO TID-WM [facility] Last Admin: 12/22/17 15:15 Dose: Not Given Prednisone (Prednisone) 5 mg PO DAILY [facility] Last Admin: 12/22/17 08:23 Dose: Not Given Senna (Senokot) 2 tab PO HSPRN PRN PRN Reason: Constipation Sodium Chloride (Flush - Normal Saline) 10 ml IVF Q12HR [facility] Last Admin: 12/22/17 08:23 Dose: Not Given Sodium Chloride (Flush - Normal Saline) 10 ml IVF PRN PRN PRN Reason: Saline Flush
[2017-12-23] MEDS: ACYCLOVIR SODIUM IVPB SCH ×3 (05:00→20:34)
[2017-12-23] MEDS: SODIUM CHLORIDE 0.9% IVPB SCH ×3 (05:00→20:34)
[2017-12-23] MEDS: Hydrocodone-Acetamin 15 ML UDCUP PO PRN ×3 (05:00→17:37)
[2017-12-23 05:20] LABS: #Lymphocytes 0.5 thou/uL (1.20-3.40); #Monocytes 1.1 thou/uL (0.11-0.59); #Neutrophils 6.3 thou/uL (1.40-6.50); %Eosinophils 0.1 % (0.0-10.0); %Lymphocytes 5.9 % (21.0-51.0); %Monocytes 14.5 % (0.0-10.0); %Neutrophils 79.6 % (42.0-75.0); Hemoglobin 11.4 g/dL (12.0-16.0); Mean Corpuscular HGB CONC 33.1 g/dL (32.0-36.0); Mean Corpuscular Hemoglobin 31.4 pg (27.0-31.0); Mean Platelet Volume 7.4 fL (7.4-10.4); Platelet Count 378 thou/uL (130-400); RBC Distribution Width 10.9 % (11.5-14.5); Red Blood Cell (RBC) Count 3.63 mill/uL (4.20-5.40); White Blood Cell (WBC) Count 7.9 thou/uL (4.8-10.8)
[2017-12-23] MEDS: NS 0.9% w/ 40 MEQ KCL 1,000 ML IV SCH (05:33)
[2017-12-23 05:38] LABS: Albumin 3.2 g/dL (3.4-4.8); Anion Gap 12 mmol/L (10-20); BUN (Urea Nitrogen) 14 mg/dL (9.8-20.1); BUN/Creatinine Ratio 21.21; Calc. Creatinine Clearance 69 mL/min (70-130); Calcium 8.8 mg/dL (7.8-10.44); Carbon Dioxide 27 mmol/L (23-31); Chloride 101 mmol/L (98-107); Estimated GFR-MDRD Greater than 90; Glucose 143 mg/dL (80-115); Phosphorus 3.5 mg/dL (2.3-4.7); Potassium 3.6 mmol/L (3.5-5.1); Sodium 136 mmol/L (136-145)
[2017-12-23] MEDS: predniSONE 5 MG TAB PO SCH (08:11)
[2017-12-23] MEDS: K-Phos Neutral 250 MG TAB PO SCH ×3 (08:11→14:17)
[2017-12-23] MEDS: Famotidine 20 MG TAB PO SCH ×2 (08:11→20:33)
[2017-12-23 14:38] LABS: dsDNA IgG Antibody Less than 0.5 IU/mL (<10 Negative)
[2017-12-23] MEDS: Fluconazole In NaCl,Iso-Osm 100 MG IVPB SCH (17:37)
--- NOTE | 2017-12-23 19:47 | PDOC.PN ---
- Subjective Encounter Start Date: 12/23/17 Encounter Start Time: 15:00 Patient seen and examined for stomatitis. Tolerating tube feeds. No new complaints. No overnight events - Objective Resuscitation Status: Resuscitation Status FULL:Full Resuscitation MAR Reviewed: Yes Vital Signs & Weight: Vital Signs (12 hours) Temp Pulse Resp BP BP Pulse Ox 12/23/17 19:14 97.5 F L 63 16 138/87 97 12/23/17 12:00 97.7 F 68 16 138/68 Weight Admit Weight 109 lb Weight 109 lb I&O: 12/22/17 12/23/17 12/24/17 06:59 06:59 06:59 Intake Total 1969 1530 90 Balance 1969 1530 90 Result Diagrams: 12/23/17 04:44 12/23/17 04:44 Phys Exam - Physical Examination Constitutional: NAD HEENT: moist MMs erythematous mucus mem. Cardiovascular: RRR, no rub Gastrointestinal: soft, non-tender Dx/Plan - Plan DVT proph w/SCDs IMPRESSION: 1. Near syncopal episode, probably secondary to hypotension. 2. Stomatitis consistent with candidiasis/Herpes labialis. 3. Severe protein Calorie Malnutrition - on tube feeds 4. Leukopenia with bandemia and significant monocytosis. 5. Hyponatremia- impoving 6. Hypokalemia/Hypophosphatemia 7. Systemic lupus erythematosus with possible exacerbation. 8. Irritable bowel syndrome. 9. Depression without any suicidal ideation. PLAN: Cont tube feed Cont Fluconazole/Acyclovir Cont Prednisone s/p 3 doses of Decadron Review of Systems - Review of Systems Cardiovascular: negative: chest pain, palpitations, orthopnea, paroxysmal nocturnal dyspnea, edema, light headedness, other Gastrointestinal: negative: Nausea, Vomiting, Abdominal Pain, Diarrhea, Constipation, Melena, Hematochezia, Other - Medications/Allergies Allergies/Adverse Reactions: Allergies Allergy/AdvReac Type Severity Reaction Status Date / Time Penicillins Allergy Verified 12/19/17 15:47 Sulfa (Sulfonamide Allergy Verified 12/19/17 15:47 Antibiotics) bacitracin AdvReac Intermediate Rash Verified 12/20/17 10:47 Medications: Current Medications Acetaminophen (Tylenol) 650 mg PO Q4H PRN PRN Reason: Headache/Fever or Pain Last Admin: 12/22/17 20:40 Dose: 650 mg Hydrocodone Bitart/Acetaminophen (Hydrocodone-Apap 7.5-325/15) 10 ml PO Q6H PRN PRN Reason: Moderate Pain (4-6) Last Admin: 12/23/17 17:37 Dose: 10 ml Al Hydroxide/Mg Hydroxide 60 ml/ Lidocaine HCl 30 ml/Diphenhydramine HCl 75 mg 0 ml SSW PRN PRN PRN Reason: Mouth Irritation Last Admin: 12/20/17 17:45 Dose: 10 ml Diphenhydramine HCl (Benadryl) 25 mg PO Q6H PRN PRN Reason: Itching & Insomnia Famotidine (Pepcid) 20 mg PO BID [facility] Last Admin: 12/23/17 08:11 Dose: Not Given Fluconazole/Sodium Chloride 100 mg/ Miscellaneous Medication 1 each/ Device 50 mls @ 100 mls/hr IVPB 1800 [facility] Last Admin: 12/23/17 17:37 Dose: 50 mls Acyclovir Sodium 330 mg/ (Sodium Chloride) 106.6 mls @ 106.6 mls/hr IVPB Q8HR [facility] Last Admin: 12/23/17 13:43 Dose: 106.6 mls Potassium Chloride/Sodium Chloride (Ns 0.9% W/ 40 Meq Kcl) 1,000 mls @ 50 mls/ hr IV .Q20H [facility] Last Admin: 12/23/17 05:33 Dose: Not Given Magnesium Hydroxide (Milk Of Magnesium) 30 ml PO DAILYPRN PRN PRN Reason: Constipation Phosphorus (Kphos Neutral) 500 mg PO TID-WM [facility] Last Admin: 12/23/17 14:17 Dose: Not Given Prednisone (Prednisone) 5 mg PO DAILY [facility] Last Admin: 12/23/17 08:11 Dose: Not Given Senna (Senokot) 2 tab PO HSPRN PRN PRN Reason: Constipation Sodium Chloride (Flush - Normal Saline) 10 ml IVF Q12HR [facility] Last Admin: 12/23/17 08:11 Dose: Not Given Sodium Chloride (Flush - Normal Saline) 10 ml IVF PRN PRN PRN Reason: Saline Flush
[2017-12-23 20:08] LABS: HSV 2 - DNA Negative (Negative)
[2017-12-24] MEDS: Hydrocodone-Acetamin 15 ML UDCUP PO PRN ×4 (00:19→21:52)
[2017-12-24] MEDS: NS 0.9% w/ 40 MEQ KCL 1,000 ML IV SCH ×2 (00:21→12:06)
[2017-12-24] MEDS: Acetaminophen 325 MG TAB PO PRN (03:28)
[2017-12-24 04:44] LABS: #Lymphocytes 0.5 thou/uL (1.20-3.40); #Monocytes 0.8 thou/uL (0.11-0.59); #Neutrophils 5.5 thou/uL (1.40-6.50); %Basophils 0.3 % (0.0-1.0); %Eosinophils 0.2 % (0.0-10.0); %Lymphocytes 6.7 % (21.0-51.0); %Monocytes 11.9 % (0.0-10.0); %Neutrophils 80.9 % (42.0-75.0); Hemoglobin 11.6 g/dL (12.0-16.0); Mean Corpuscular HGB CONC 33.6 g/dL (32.0-36.0); Mean Corpuscular Hemoglobin 32.1 pg (27.0-31.0); Mean Corpuscular Volume 95.7 fL (78.0-98.0); Mean Platelet Volume 7.4 fL (7.4-10.4); Platelet Count 390 thou/uL (130-400); Red Blood Cell (RBC) Count 3.62 mill/uL (4.20-5.40); White Blood Cell (WBC) Count 6.8 thou/uL (4.8-10.8)
[2017-12-24 04:56] LABS: Albumin 3.2 g/dL (3.4-4.8); Anion Gap 14 mmol/L (10-20); BUN (Urea Nitrogen) 16 mg/dL (9.8-20.1); Calc. Creatinine Clearance 71 mL/min (70-130); Calcium 8.7 mg/dL (7.8-10.44); Carbon Dioxide 26 mmol/L (23-31); Chloride 98 mmol/L (98-107); Estimated GFR-MDRD Greater than 90; Glucose 140 mg/dL (80-115); Phosphorus 3.3 mg/dL (2.3-4.7); Potassium 3.7 mmol/L (3.5-5.1); Sodium 134 mmol/L (136-145)
[2017-12-24] MEDS: SODIUM CHLORIDE 0.9% IVPB SCH (05:11)
[2017-12-24] MEDS: ACYCLOVIR SODIUM IVPB SCH (05:11)
[2017-12-24] MEDS: Famotidine 20 MG TAB PO SCH ×2 (08:17→20:04)
[2017-12-24] MEDS: Triple Antibiotic Oint 1 GM Packet TOP SCH ×2 (08:17→20:04)
[2017-12-24] MEDS: K-Phos Neutral 250 MG TAB PO SCH (08:29)
[2017-12-24] MEDS: predniSONE 5 MG TAB PO SCH (08:29)
[2017-12-24] MEDS ORDERED: Dexamethasone 4 mg/ml Vial SLOW IVP SCH (10:00)
--- NOTE | 2017-12-24 11:35 | PRG ---
DATE OF SERVICE: 12/24/2017 SUBJECTIVE: The patient has experienced some improvement in the stomatitis. No abdominal pain. No respiratory symptoms. No neurological symptoms. OBJECTIVE: VITAL SIGNS: Temperature max 97.5, blood pressure 160/79, pulse 62, respiration 16, O2 sat 98%. Still with erosive stomatitis and area is little bit improved. NECK: Supple. The left earlobe still with some eruption there and erythema. LUNGS: Symmetric air entry. HEART: S1, S2, regular rate. No S3, S4. ABDOMEN: Soft, not distended or tender. EXTREMITIES: Moves extremities equally. LABORATORY DATA: White cell count 6.8, hemoglobin 11.6, platelets 390, 80% neutrophils and creatinine 0.64, sodium 134, albumin 3.2. Urinalysis with 11- 20 WBCs. Complement C4 was down at 4.6 and complement C3 was normal. Anti- double stranded DNA IgG antibody was less than 0.5. Herpes simplex 1 and 2 DNA PCR submitted is reported as negative. The varicella zoster virus DNA PCR is pending. ASSESSMENT AND DISCUSSION: SLE with joint involvement with severe stomatitis, with now negative herpes simplex workup and pretty much rules out the diagnosis and we will discontinue acyclovir. The possibility of lupus associated stomatitis is considered versus medication adverse reaction but will have to wait on the results of VZV DNA PCR. CHRISTYD
[2017-12-24] MEDS: Fluconazole In NaCl,Iso-Osm 100 MG IVPB SCH (18:34)
--- NOTE | 2017-12-24 21:43 | PDOC.PN ---
- Subjective Encounter Start Date: 12/24/17 Encounter Start Time: 11:00 Patient seen and examined for stomatitis. On tube feeds. Unable to tolerate PO. No new complaints. No overnight events - Objective Resuscitation Status: Resuscitation Status FULL:Full Resuscitation MAR Reviewed: Yes Vital Signs & Weight: Vital Signs (12 hours) Temp Pulse Resp BP BP Pulse Ox 12/24/17 19:25 97.7 F 63 16 155/80 H 97 12/24/17 16:00 97.8 F 65 16 150/90 H 144/80 H 96 12/24/17 11:39 97.4 F L 68 18 144/78 H 98 Weight Admit Weight 109 lb Weight 109 lb I&O: 12/23/17 12/24/17 12/25/17 06:59 06:59 06:59 Intake Total 0761 811 5876 Balance 5583 565 7885 Result Diagrams: 12/24/17 04:04 12/24/17 04:04 Phys Exam - Physical Examination Constitutional: NAD HEENT: sclera anicteric Erythematous mucous membrane Neurological: moves all 4 limbs Dx/Plan - Plan DVT proph w/SCDs IMPRESSION: 1. Near syncopal episode, probably secondary to hypotension. 2. Stomatitis consistent with candidiasis/Herpes labialis. 3. Severe protein Calorie Malnutrition - on tube feeds 4. Leukopenia with bandemia and significant monocytosis. 5. Hyponatremia- impoving 6. Hypokalemia/Hypophosphatemia 7. Systemic lupus erythematosus 8. Irritable bowel syndrome. 9. Depression without any suicidal ideation. PLAN: Cont tube feed Cont Fluconazole/Acyclovir Cont Dexamethasone per Rheumatology Review of Systems - Review of Systems Respiratory: negative: Cough, Dry, Shortness of Breath, Hemoptysis, SOB with Excertion, Pleuritic Pain, Sputum, Wheezing Cardiovascular: negative: chest pain, palpitations, orthopnea, paroxysmal nocturnal dyspnea, edema, light headedness, other - Medications/Allergies Allergies/Adverse Reactions: Allergies Allergy/AdvReac Type Severity Reaction Status Date / Time Penicillins Allergy Verified 12/19/17 15:47 Sulfa (Sulfonamide Allergy Verified 12/19/17 15:47 Antibiotics) bacitracin AdvReac Intermediate Rash Verified 12/20/17 10:47 Medications: Current Medications Acetaminophen (Tylenol) 650 mg PO Q4H PRN PRN Reason: Headache/Fever or Pain Last Admin: 12/24/17 03:28 Dose: 650 mg Hydrocodone Bitart/Acetaminophen (Hydrocodone-Apap 7.5-325/15) 10 ml PO Q6H PRN PRN Reason: Moderate Pain (4-6) Last Admin: 12/24/17 16:01 Dose: 10 ml Al Hydroxide/Mg Hydroxide 60 ml/ Lidocaine HCl 30 ml/Diphenhydramine HCl 75 mg 0 ml SSW PRN PRN PRN Reason: Mouth Irritation Last Admin: 12/20/17 17:45 Dose: 10 ml Dexamethasone (Decadron) 8 mg SLOW IVP DAILY [facility] Diphenhydramine HCl (Benadryl) 25 mg PO Q6H PRN PRN Reason: Itching & Insomnia Famotidine (Pepcid) 20 mg PO BID [facility] Last Admin: 12/24/17 20:04 Dose: 20 mg Fluconazole/Sodium Chloride 100 mg/ Miscellaneous Medication 1 each/ Device 50 mls @ 100 mls/hr IVPB 1800 [facility] Last Admin: 12/24/17 18:34 Dose: 50 mls Potassium Chloride/Sodium Chloride (Ns 0.9% W/ 40 Meq Kcl) 1,000 mls @ 50 mls/ hr IV .Q20H [facility] Last Admin: 12/24/17 12:06 Dose: 1,000 mls Magnesium Hydroxide (Milk Of Magnesium) 30 ml PO DAILYPRN PRN PRN Reason: Constipation Neomycin/Polymyxin/Bacitracin (Triple Antibiotic) 1 gm TOP BID [facility] Last Admin: 12/24/17 20:04 Dose: 1 gm Senna (Senokot) 2 tab PO HSPRN PRN PRN Reason: Constipation Sodium Chloride (Flush - Normal Saline) 10 ml IVF Q12HR [facility] Last Admin: 12/24/17 20:05 Dose: 10 ml Sodium Chloride (Flush - Normal Saline) 10 ml IVF PRN PRN PRN Reason: Saline Flush
[2017-12-25] MEDS: Hydrocodone-Acetamin 15 ML UDCUP PO PRN ×4 (03:55→23:12)
[2017-12-25 05:08] LABS: Albumin 3.3 g/dL (3.4-4.8); Anion Gap 14 mmol/L (10-20); BUN (Urea Nitrogen) 18 mg/dL (9.8-20.1); BUN/Creatinine Ratio 27.69; Calc. Creatinine Clearance 70 mL/min (70-130); Calcium 9.2 mg/dL (7.8-10.44); Carbon Dioxide 29 mmol/L (23-31); Chloride 97 mmol/L (98-107); Estimated GFR-MDRD Greater than 90; Glucose 133 mg/dL (80-115); Phosphorus 4.2 mg/dL (2.3-4.7); Sodium 136 mmol/L (136-145)
[2017-12-25 05:17] LABS: Band 6 % (5-11); Hemoglobin 11.3 g/dL (12.0-16.0); Lymphocytes 12 % (21-51); MDiff Complete? YES; Mean Corpuscular HGB CONC 32.9 g/dL (32.0-36.0); Mean Corpuscular Hemoglobin 31.3 pg (27.0-31.0); Mean Corpuscular Volume 95.1 fL (78.0-98.0); Mean Platelet Volume 7.4 fL (7.4-10.4); Metamyelocyte 1 % (0-0); Monocytes 15 % (0-10); Neutrophil 66 % (42-75); PLT Morphology Comment Appears Adequate; Platelet Count 399 thou/uL (130-400); White Blood Cell (WBC) Count 8.5 thou/uL (4.8-10.8)
[2017-12-25] MEDS: Famotidine 20 MG TAB PO SCH ×2 (08:45→20:36)
[2017-12-25] MEDS: Dexamethasone 4 mg/ml Vial SLOW IVP SCH (08:45)
[2017-12-25] MEDS: Triple Antibiotic Oint 1 GM Packet TOP SCH ×2 (08:45→20:36)
[2017-12-25] MEDS: valACYclovir 500 MG TAB PO SCH ×2 (15:30→20:48)
[2017-12-25] MEDS: Fluconazole In NaCl,Iso-Osm 100 MG IVPB SCH (17:21)
--- NOTE | 2017-12-25 19:49 | PRG ---
DATE OF SERVICE: 12/25/2017 BRIEF SUMMARY: A 62-year-old female with systemic lupus erythematosus, on chronic steroids as well a s recent use of biologics (Benlysta) presented to the hospital with near syncopal episode. Her pari p was consistent with oral candidiasis and suspected herpes labialis. Her blood pressure improved wi th IV hydration. She eventually had a Dobbhoff tube placed due to inability to tolerate oral solids or liquids. She is tolerating tube feeds over the last 2-3 days. Her oral lesions have been improvi ng. Herpes simplex virus PCR was negative. Varicella zoster virus PCR came back positive. She also had an episode of mucosal bleeding for which she was seen by ENT. She is currently followed by Dr. Dias, Rheumatology and is currently on IV Decadron over the last 3-4 days. SUBJECTIVE: The patient overall feels much better. She denies any fever or chills. She is able to tolerate liquids. She will to try to eat some solids. CURRENT MEDICATIONS: Reviewed. PHYSICAL EXAMINATION: VITAL SIGNS: Temperature 97.4, pulse 62, respirations 20, blood pressure 146/88. GENERAL: A 62-year-old female in no apparent distress. The Dobhoff tube noted. HEENT: Oral lesions seems to be improving. Less erythematous. No visible bleeding. PSYCHIATRY: The patient is alert, awake, oriented x3. LABORATORY FINDINGS: 1. CBC showed WBC 8.5 with hemoglobin 11.3, hematocrit 34.2, platelet of 399. 2. Sodium 136, potassium 4, chloride 97, bicarbonate 29. 3. BUN 18, creatinine 0.65. 4. Urine culture showed Staphylococcus. IMPRESSION: 1. Near syncopal episode secondary to hypotension, improved. IV fluids will be discontinued. 2. Inability to tolerate oral solids or liquid. We will continue Dobhoff feeding. We will also con tinue Ensure. She is trying to advance her diet. 3. Severe stomatitis secondary to varicella zoster virus as well as oral candidiasis. We will katy nue fluconazole. I discussed with Dr. Izquierdo today. Dr. Izquierdo recommended to start valacyclovir. We will also continue IV steroids per Rheumatology. 4. Systemic lupus erythematosus management as discussed above. 5. Urine culture positive for Staphylococcus. Dr. Izquierdo recommended not to treat, probably contamin ation. 6. Depression. 7. Hyponatremia, improved. 8. Hypokalemia, improved. 9. Severe protein calorie malnutrition. 10. Disposition per Infectious Disease/Rheumatology. The Dobhoff tube can be discontinued in 1-2 da ys if patient is tolerating oral diet.
[2017-12-26] MEDS: Hydrocodone-Acetamin 15 ML UDCUP PO PRN (06:43)
[2017-12-26] MEDS: valACYclovir 500 MG TAB PO SCH ×3 (08:47→20:14)
[2017-12-26] MEDS: Dexamethasone 4 mg/ml Vial SLOW IVP SCH (08:48)
[2017-12-26] MEDS: Triple Antibiotic Oint 1 GM Packet TOP SCH ×2 (08:48→20:14)
[2017-12-26] MEDS: Famotidine 20 MG TAB PO SCH ×2 (08:48→20:14)
[2017-12-26] MEDS: HYDROcodone/Acetaminophen 7.5/325 mg Tablet PO PRN ×2 (13:55→20:19)
--- NOTE | 2017-12-26 15:27 | PDOC.PN ---
- Subjective Encounter Start Date: 12/26/17 Encounter Start Time: 15:25 Ms. Ziegler was seen today in follow-up of severe stomatitis. She says she is feeling much better. She says the pain is now localized to the tip of her tongue. - Objective Resuscitation Status: Resuscitation Status FULL:Full Resuscitation MAR Reviewed: Yes Vital Signs & Weight: Vital Signs (12 hours) Temp Pulse Resp BP Pulse Ox 12/26/17 11:13 97.6 F 65 18 156/84 H 93 L 12/26/17 08:40 96 12/26/17 07:17 97.7 F 63 20 163/91 H 96 Weight Admit Weight 109 lb Weight 109 lb I&O: 12/25/17 12/26/17 12/27/17 06:59 06:59 06:59 Intake Total 1750 2110 60 Balance 1750 0 60 Result Diagrams: 12/25/17 04:20 12/25/17 04:20 Phys Exam - Physical Examination HEENT: PERRLA + redness on the tip of Respiratory: no wheezing, no rales, no rhonchi, clear to auscultation bilateral Cardiovascular: RRR, no significant murmur Gastrointestinal: soft, non-tender, no distention, positive bowel sounds Musculoskeletal: no edema Neurological: non-focal, moves all 4 limbs Dx/Plan (1) Stomatitis Code(s): K12.1 - OTHER FORMS OF STOMATITIS Status: Acute (2) Systemic lupus erythematosus Code(s): M32.9 - SYSTEMIC LUPUS ERYTHEMATOSUS, UNSPECIFIED Status: Acute (3) Herpes zoster Code(s): B02.9 - ZOSTER WITHOUT COMPLICATIONS Status: Acute - Plan * Herpes Zoster with severe stomatitis- continue Valtrex * Dysphagia due to the above- will continue DHT feedings likely through the weekend * Hopefully home on Thursday * SLE- stable.
[2017-12-26] MEDS: Fluconazole In NaCl,Iso-Osm 100 MG IVPB SCH (17:31)
[2017-12-26] MEDS: Aluminum & Magnesium Hydroxide 60 ML, Lidocaine 2% Viscous Solution 30 ML, diphenhydrAM... SSW PRN (23:21)
[2017-12-27] MEDS: HYDROcodone/Acetaminophen 7.5/325 mg Tablet PO PRN ×3 (02:31→15:22)
[2017-12-27] MEDS: Aluminum & Magnesium Hydroxide 60 ML, Lidocaine 2% Viscous Solution 30 ML, diphenhydrAM... SSW PRN (05:24)
[2017-12-27] MEDS: valACYclovir 500 MG TAB PO SCH ×2 (08:48→15:23)
[2017-12-27] MEDS: Famotidine 20 MG TAB PO SCH (08:48)
[2017-12-27] MEDS: Triple Antibiotic Oint 1 GM Packet TOP SCH (08:49)
[2017-12-27] MEDS: Dexamethasone 4 mg/ml Vial SLOW IVP SCH (08:49)
--- NOTE | 2017-12-27 14:20 | PRG ---
DATE OF SERVICE: 12/27/2017 SUBJECTIVE: Ms. Ziegler is feeling better. She had some recrudescence of tongue pain yesterday in the left. The Dobbhoff tube in place. No respiratory symptoms, abdominal pain or diarrhea, no genitouri nary symptoms. PHYSICAL EXAMINATION: VITAL SIGNS: T-max 97.7, blood pressure 140/70, pulse 70, respirations 16, O2 sat 98%. SKIN: Shows marked improvement of the eruption in the left earlobe and in the mouth. Still some jory ssitis remaining, but very mild. LABORATORY DATA: White cell count 8.5, hemoglobin 11, platelets 399. The varicella zoster virus, DN A, PCR was positive. ASSESSMENT AND DISCUSSION: Stomatitis, glossitis, and left earlobe infection, most likely due to eder icella zoster virus infection with recrudescence or relapse from the Benlysta immunosuppressive agent . Continue Valtrex for a total of 7 days. She will be eligible for the varicella-zoster subunit vac cine once she is discharged. Discontinue Diflucan.
--- NOTE | 2017-12-27 15:04 | PDOC.PN ---
- Subjective Encounter Start Date: 12/27/17 Encounter Start Time: 15:03 Ms. Ziegler was seen today in follow-up of severe stomatitis. She is feeling much better. She has been able to eat. - Objective Resuscitation Status: Resuscitation Status FULL:Full Resuscitation MAR Reviewed: Yes Vital Signs & Weight: Vital Signs (12 hours) Temp Pulse Resp BP BP Pulse Ox 12/27/17 08:47 98 12/27/17 08:00 97.7 F 70 16 143/78 H 98 12/27/17 03:19 97.5 F L 72 16 160/89 H 97 Weight Admit Weight 109 lb Weight 109 lb I&O: 12/26/17 12/27/17 12/28/17 06:59 06:59 06:59 Intake Total 0 1340 60 Balance 2109 1340 60 Result Diagrams: 12/25/17 04:20 12/25/17 04:20 Phys Exam - Physical Examination HEENT: PERRLA + erythema, on the tip of her tongue, and ulcers on the side corner of her right side of mouth Respiratory: no wheezing, no rales, no rhonchi, clear to auscultation bilateral Cardiovascular: RRR, no significant murmur, no rub Gastrointestinal: soft, non-tender, no distention, positive bowel sounds Dx/Plan (1) Stomatitis Code(s): K12.1 - OTHER FORMS OF STOMATITIS Status: Acute (2) Systemic lupus erythematosus Code(s): M32.9 - SYSTEMIC LUPUS ERYTHEMATOSUS, UNSPECIFIED Status: Acute (3) Herpes zoster Code(s): B02.9 - ZOSTER WITHOUT COMPLICATIONS Status: Acute - Plan * Severe Stomatits due to Herpes Zoster- she has improved dramatically from admission * DHT can be removed * She is stable for discharge home..
[2017-12-27 16:22] VITALS: BP 153/90; TEMP 97.9
--- NOTE | 2017-12-27 20:22 | DIS ---
PRIMARY CARE PHYSICIAN: Yoon Palomo MD DATE OF ADMISSION: 12/19/2017 DATE OF DISCHARGE: 12/27/2017 DISCHARGE DISPOSITION: Home. PRIMARY DISCHARGE DIAGNOSES: 1. Severe stomatitis. 2. Herpes zoster infection. 3. Severe acute protein-calorie malnutrition. 4. Systemic lupus erythematosus. 5. History of anxiety and depression. DISCHARGE MEDICATIONS: Include Valtrex 1000 mg p.o. 3 times a day for 5 additional days, Decadron 8 mg daily and tapering to be determined by her blueprinter. Continue prednisone when she is off of the Decadron taper, Tylenol #3 as needed for pain, Plaquenil 300 mg daily, and duloxetine 30 mg anna y. CODE STATUS: FULL CODE. ALLERGIES: To PENICILLIN, SULFA, and BACITRACIN. CONSULTANTS DURING THE HOSPITAL STAY: Include Infectious Disease. HOSPITAL COURSE: Ms. De La Rosa is a pleasant 62-year-old female, who presented to the emergency room due to severe pain in her mouth, which had gotten to the point where she was unable to eat. She had lost 25 pounds over the last 6 months and in the last 2 weeks prior to this admission, she was noted to h ave ulcerations in her mouth. It was originally thought possibly to be due to Marjorie esophagitis as she has a relative immunosuppression from her medications for lupus. She was seen by ENT and it was also thought to potentially be a side effect of her medication. However, after cultures were done o f the ulcers in the mouth, it was found to be the result of herpes zoster. She has been placed on Va ltrex with improvement in her symptoms during her hospital stay. She was treated with supplemental n utrition via Dobbhoff tube, and after several days in the hospital, the pain in her mouth improved to the point where she was able to tolerate p.o. and is being discharged home in stable condition to ve close outpatient followup with her primary care physician and also with her blueprinter.
== END 2017-12-27 16:21 | disposition home or self-care (01) | DRG 157 ==
LOC: SCSER 11:59 → T4-A 13:20
PROVIDERS: ADMIT Internal Medicine; ATTEND Internal Medicine
DX: B37.0 Candidal stomatitis (principal); E43 Unspecified severe protein-calorie malnutrition; B00.2 Herpesviral gingivostomatitis and pharyngotonsillitis; E87.1 Hypo-osmolality and hyponatremia; N39.0 Urinary tract infection, site not specified; Z68.1 Body mass index [BMI] 19.9 or less, adult; M32.9 Systemic lupus erythematosus, unspecified; Z79.52 Long term (current) use of systemic steroids; K58.9 Irritable bowel syndrome, unspecified; I73.00 Raynaud's syndrome without gangrene; B02.9 Zoster without complications; F32.9 Major depressive disorder, single episode, unspecified; F41.9 Anxiety disorder, unspecified; Z88.2 Allergy status to sulfonamides; Z88.0 Allergy status to penicillin; Z88.1 Allergy status to other antibiotic agents; R55 Syncope and collapse; Z79.899 Other long term (current) drug therapy; Z87.891 Personal history of nicotine dependence; I10 Essential (primary) hypertension; E87.6 Hypokalemia; K14.0 Glossitis; L08.9 Local infection of the skin and subcutaneous tissue, unspecified; I95.9 Hypotension, unspecified; B95.8 Unspecified staphylococcus as the cause of diseases classified elsewhere; Z66 Do not resuscitate; D72.819 Decreased white blood cell count, unspecified
CPT/HCPCS: 36415; 74018; 80048; 80053; 80069; 81001; 83605; 83690; 83735; 84100; 84484; 85007; 85025; 85027; 85652; 86140; 86160; 86225; 87070; 87077; 87086; 87186; 87205; 87529; 87798; 96361; 96374; A4216; J0133; J1100; J1450; J1885; J7050

== ENCOUNTER 2018-04-15 12:31 | Inpatient (IN) | payer OTHER ==
[2018-04-15 14:49] VITALS: BMI 16.0
[2018-04-15] MEDS ORDERED: Diabetic Tussin 200 MG/10 ML UDCUP PO PRN (15:33)
[2018-04-15] MEDS ORDERED: hydrALAZINE 20 MG/ML VIAL SLOW IVP PRN (15:33)
[2018-04-15] MEDS ORDERED: Benzonatate 100 MG CAP PO PRN (15:33)
[2018-04-15] MEDS ORDERED: cloNIDine 0.1 MG TAB PO PRN (15:33)
[2018-04-15] MEDS ORDERED: Sodium Chloride 0.9% 500 ML IV SCH (15:45)
[2018-04-15] MEDS ORDERED: Dextrose 5 %-0.45 % NaCl 1,000 ML IV SCH (15:45)
[2018-04-15 17:05] LABS: #Lymphocytes 0.2 thou/uL (1.20-3.40); #Monocytes 0.1 thou/uL (0.11-0.59); #Neutrophils 0.9 thou/uL (1.40-6.50); %Eosinophils 1.3 % (0.0-10.0); %Monocytes 4.7 % (0.0-10.0); %Neutrophils 78.1 % (42.0-75.0); Mean Corpuscular HGB CONC 34.5 g/dL (32.0-36.0); Mean Corpuscular Hemoglobin 32.5 pg (27.0-31.0); Mean Platelet Volume 7.7 fL (7.4-10.4); Platelet Count 158 thou/uL (130-400); RBC Distribution Width 12.6 % (11.5-14.5); Red Blood Cell (RBC) Count 3.39 mill/uL (4.20-5.40); White Blood Cell (WBC) Count 1.2 thou/uL (4.8-10.8)
[2018-04-15 17:12] LABS: Reflex for Review?? YES
[2018-04-15 17:17] LABS: ALT (SGPT) 227 U/L (8-55); AST (SGOT) 238 U/L (5-34); Albumin 3.1 g/dL (3.4-4.8); Alkaline Phosphatase 69 U/L (40-150); Anion Gap 15 mmol/L (10-20); BUN (Urea Nitrogen) 17 mg/dL (9.8-20.1); Bilirubin, Total 0.5 mg/dL (0.2-1.2); Calc. Creatinine Clearance 53 mL/min (70-130); Carbon Dioxide 19 mmol/L (23-31); Chloride 97 mmol/L (98-107); Estimated GFR-MDRD 67; Globulin 2.5 g/dL (2.4-3.5); Glucose 182 mg/dL (80-115); Potassium 3.5 mmol/L (3.5-5.1); Protein, Total 5.6 g/dL (6.0-8.3); Sodium 127 mmol/L (136-145)
[2018-04-15] MEDS: Acyclovir Sodium 660 MG in Sodium Chloride 0.9% 100 ML IVPB SCH (17:35)
[2018-04-15] MEDS: HYDROcodone/Acetaminophen 5/325 mg Tablet PO PRN ×2 (17:37→21:53)
--- NOTE | 2018-04-15 20:29 | HP ---
PRIMARY CARE PHYSICIAN: Yoon Palomo MD CHIEF COMPLAINT: Rash. HISTORY OF PRESENTING ILLNESS: Ms. Ziegler is a very pleasant 62-year-old female with past medical history of SLE on chronic immunosuppressive medication and history of herpes zoster at least twice last year, who presented to the ER as a direct admission from her primary care physician's office. History is mainly obtained by the patient herself. Ms. Ziegler was recently admitted to our facility about 4 months ago with a rash that involved her face and oral and buccal mucosa and was diagnosed with herpes zoster and was treated with IV acyclovir. She reports that she started to have similar rash around [place] time, which was about 2 weeks ago. She was treated with oral acyclovir by her primary care physician, and the rash went away, but unfortunately 2 days later, she had a worse rash appeared, which at this time not only included her mouth, face, her earlobes, but also spread to her chest and surprisingly involved her fingertips on all fingers as well as all of the tips of her toes. She has not been having any fever or chills or any other constitutional symptoms with these. The rash is not really pruritic, but is somewhat painful mainly the rash in her back. She has also noticed somewhat of a different quality to her rash. Some of it is vesicular and crusting, but the rash on her chest is kind of a dry scaly maculopapular rash that she reports has been there since about [place] time. She is now being admitted with a presumptive diagnosis of zoster reactivation due to immunocompromised status. Further investigation is needed. PAST MEDICAL HISTORY: 1. Systemic lupus erythematosus. 2. History of herpes zoster twice last year. 3. History of IBS. 4. Raynaud phenomenon. 5. Anxiety and depression. PAST SURGICAL HISTORY: Hysterectomy at age of 43 and section at the age of 23. ALLERGIES: PENICILLIN AND SULFONAMIDES. HOME MEDICATIONS: 1. Plaquenil. 2. Prednisone. FAMILY HISTORY: Significant for abdominal aneurysm in her father and melanoma in her mother. SOCIAL HISTORY: No history of drug, tobacco, or alcohol abuse. She lives alone and has good family support. CODE STATUS: Full code discussed with the patient. REVIEW OF SYSTEMS: A 12-point review of system is done. It is negative except for those mentioned in the history and physical. LABORATORY DATA: Her CBC shows WBCs at 1.2 with neutrophilia with neutrophils of 78%. Her lymphocyte count is low at 16, hemoglobin is 11, platelet count is 158. Serum chemistry shows sodium of 127 with low chloride and low bicarb at 97 and 19 respectively. AST elevated to 238, ALT 227 with normal total bilirubin and alkaline phosphatase. Low total serum protein and albumin at 5.6 and 3.1 respectively. PHYSICAL EXAMINATION: VITAL SIGNS: Upon presentation to hospital; temperature 97.2, pulse of 50, respirations 16, saturating 94% on room air, and blood pressure 84/58. GENERAL: No acute distress. Awake, alert, and oriented x3. HEENT: Mucous membrane is moist. Head is normocephalic and atraumatic. No scleral icterus. No corneal or ophthalmologic involvement with the zoster is seen. She does have erythematous nonvesicular rash on the pinna of both ears. She definitely has vesicular rash inside the mouth and the underside of her tongue as well as involving her lips and face. This rash crosses the midline and involves both sides of her face including nose, cheek, as well as her chin and upper lip. CHEST: Clear to auscultation bilaterally. She has this red, scaly papular rash on anterior chest as well. Rate rhythm is regular without any murmurs, rubs, or gallops. ABDOMEN: Soft, nontender, and nondistended. No rash on her abdomen. She has scant rash in the midline and to one side in her back, which once again has some crusting over it. EXTREMITIES: Show significant erythema of all the fingertips with some rash and eruptions involving the side of the fingers. She has similar erythema and redness to all of her toes with some vesicular eruption between her big toe on the left foot. NEUROLOGIC: Nonfocal. SKIN: As above. PSYCHIATRIC: Normal affect. IMPRESSION AND PLAN: 1. Diffuse vesicular rash with history of zoster and immunocompromised status. This most likely is a reactivation of varicella. She was instructed to get the inactivated varicella vaccine after her last hospitalization, but unfortunately did not get it. However, the quality of rash is a little bit confusing as it involves multiple dermatomes, hands, and toes. At this time, we will send for varicella zoster IgG, IgM, and PCR and treat her with IV acyclovir. We will request consultation with Dr. Izquierdo, who has seen her in the past. We will use viscous lidocaine for oral lesion for pain control. The patient currently is not experiencing any neuropathic pain due to zoster reactivation. 2. Hypotension. There is evidence of dehydration with low sodium and chloride. She will be resuscitated with IV fluids. Normal saline bolus has been given. The patient is not symptomatic with the low blood pressure. 3. Leukopenia. The patient is lymphopenic with left shift with neutrophilia. Once again, etiology is unclear, but can be related secondary to diffuse zoster infection. 4. Hyponatremia, most likely secondary to dehydration from poor oral intake due to oral ulcers. She will be started on IV fluids with normal saline, and we will recheck in the morning. 5. Elevated liver enzymes. In the last hospitalization, her liver enzymes are within normal limits. She has isolated elevation of AST and ALT. We will recheck in the morning and if they are still elevated, we will go ahead and get an imaging study of her liver. It does not seem like a gallbladder or obstructive issue. 6. History of systemic lupus erythematosus. At this time, we will hold her home medications until her zoster settles down. DISPOSITION: Ms. Ziegler is currently being admitted to hospital with suspected extensive varicella zoster infection and dehydration. ESTIMATED LENGTH OF STAY: At this time is at least 2 to 3 midnights. Further management will depend upon her clinical course. Job ID: [id number]
[2018-04-15] MEDS: Lidocaine Viscous Sol 2% 15 ml UD Cup SSP PRN (20:56)
[2018-04-15] MEDS: Famotidine 20 MG TAB PO SCH (20:57)
[2018-04-15] MEDS: Sodium Chloride 0.9% 1,000 ML IV SCH (20:58)
[2018-04-16] MEDS: Acyclovir Sodium 660 MG in Sodium Chloride 0.9% 100 ML IVPB SCH ×3 (01:15→17:26)
[2018-04-16] MEDS: Lidocaine Viscous Sol 2% 15 ml UD Cup SSP PRN ×2 (05:37→14:31)
[2018-04-16] MEDS: HYDROcodone/Acetaminophen 5/325 mg Tablet PO PRN ×3 (05:37→17:27)
[2018-04-16] MEDS: Famotidine 20 MG TAB PO SCH ×2 (08:05→22:11)
[2018-04-16] MEDS: Enoxaparin Sodium 40 MG/0.4 ML SYRINGE SC SCH (08:06)
[2018-04-16 08:17] LABS: Anion Gap 10 mmol/L (10-20); BUN (Urea Nitrogen) 13 mg/dL (9.8-20.1); Calc. Creatinine Clearance 62 mL/min (70-130); Calcium 7.7 mg/dL (7.8-10.44); Carbon Dioxide 22 mmol/L (23-31); Chloride 105 mmol/L (98-107); Estimated GFR-MDRD 81; Glucose 105 mg/dL (80-115); Potassium 3.4 mmol/L (3.5-5.1); Sodium 134 mmol/L (136-145)
[2018-04-16 08:21] LABS: ALT (SGPT) 186 U/L (8-55); AST (SGOT) 169 U/L (5-34); Albumin 2.8 g/dL (3.4-4.8); Alkaline Phosphatase 64 U/L (40-150); Bilirubin, Direct 0.2 mg/dL (0.1-0.3); Bilirubin, Total 0.3 mg/dL (0.2-1.2); Protein, Total 5.1 g/dL (6.0-8.3)
[2018-04-16 08:29] LABS: Hemoglobin 10.5 g/dL (12.0-16.0); Mean Corpuscular HGB CONC 34.7 g/dL (32.0-36.0); Mean Corpuscular Hemoglobin 32.4 pg (27.0-31.0); Mean Corpuscular Volume 93.3 fL (78.0-98.0); Mean Platelet Volume 7.2 fL (7.4-10.4); Platelet Count 165 thou/uL (130-400); RBC Distribution Width 12.6 % (11.5-14.5); Red Blood Cell (RBC) Count 3.24 mill/uL (4.20-5.40); White Blood Cell (WBC) Count 1.5 thou/uL (4.8-10.8)
[2018-04-16 09:11] LABS: Band 6 % (5-11); Lymphocytes 50 % (21-51); MDiff Complete? YES; Monocytes 12 % (0-10); Neutrophil 32 % (42-75); RBC Morphology Normal
[2018-04-16] MEDS: Sodium Chloride 0.9% 1,000 ML IV SCH ×2 (11:12→20:48)
--- NOTE | 2018-04-16 12:03 | ULT ---
ULTRASOUND ABDOMEN LIMITED: (RIGHT UPPER QUADRANT) DATE: 04/16/18 HISTORY: 62-year-old female with elevated liver function tests and rash. COMPARISON: None. FINDINGS: Gallbladder: Normal wall thickness. No evidence of gallstones or sludge. No pericholecystic fluid. Common duct: 9 mm. Liver: Normal size. Heterogeneous echogenicity and echotexture. Pancreas: Nonspecific sonographic appearance. Right kidney: No hydronephrosis. IMPRESSION: 1. Common duct dilation of 9 mm. This is suspicious for obstruction of the common bile duct. 2. Diffusely heterogeneous echogenicity of the liver. Possible etiologies include heterogeneous hepa tic steatosis versus infiltrative hepatocellular carcinoma versus hepatic metastatic disease. 3. Recommend further evaluation with multiphase CT of abdomen with and without contrast (liver mass protocol). DONALD Coker POS: [facility]
[2018-04-16 12:42] LABS: Ref Lab Test Ordered ENTEROVIRUS PCR; Reference Lab Name LABCORP
--- NOTE | 2018-04-16 14:22 | PDOC.PN ---
- Subjective Encounter Start Date: 04/16/18 Encounter Start Time: 14:19 Subjective: abouit the same. no new events. able to eat CLD -: no fever/chills/worsening of rash - Objective MAR Reviewed: Yes Vital Signs & Weight: Vital Signs (12 hours) Temp Pulse Resp BP Pulse Ox 04/16/18 11:07 97.3 F L 60 17 98/56 L 98 04/16/18 08:00 98 04/16/18 07:54 97.2 F L 58 L 18 104/64 98 Weight Weight 108 lb 8 oz I&O: 04/15/18 04/16/18 04/17/18 06:59 06:59 06:59 Intake Total 678 Balance 678 Result Diagrams: 04/16/18 07:17 04/16/18 07:17 Additional Labs: Laboratory Tests 12/20/17 04/15/18 04/15/18 03:16 16:42 16:42 WBC 1.2 L Sodium 127 L AST 11 238 H ALT 11 227 H 04/16/18 04/16/18 04/16/18 07:17 07:17 07:17 WBC 1.5 L Sodium 134 L AST 169 H ALT 186 H Phys Exam - Physical Examination Constitutional: NAD HEENT: PERRLA, moist MMs, sclera anicteric, oral pharynx no lesions Neck: no nodes, no JVD, supple, full ROM Respiratory: no wheezing, no rales, no rhonchi, clear to auscultation bilateral Cardiovascular: RRR, no significant murmur Gastrointestinal: soft, non-tender, no distention, positive bowel sounds Musculoskeletal: no edema, pulses present Neurological: non-focal, normal sensation, moves all 4 limbs Psychiatric: normal affect, A&O x 3 Skin: no rash Dx/Plan (1) Herpes zoster Code(s): B02.9 - ZOSTER WITHOUT COMPLICATIONS Status: Acute Qualifiers: Herpes zoster complications: without complications Qualified Code(s): B02.9 - Zoster without complications (2) Stomatitis Code(s): K12.1 - OTHER FORMS OF STOMATITIS Status: Acute (3) Systemic lupus erythematosus Code(s): M32.9 - SYSTEMIC LUPUS ERYTHEMATOSUS, UNSPECIFIED Status: Chronic (4) Immunosuppressed status Code(s): D89.9 - DISORDER INVOLVING THE IMMUNE MECHANISM, UNSPECIFIED Status: Chronic - Plan DVT proph w/SCDs LFT better but US shows some hepatic parenchymal Ds. -: Unknown if related to viral Infection or chr.Will suggest CT in 2-3 weeks -: send EnteroVirus to r/o other Viral infections. -: cont IV acyclovir.ID recs requested -: advance diet .viscouos lidocaine.IVF * . Review of Systems - Review of Systems Constitutional: negative: fever, chills, sweats, weakness, malaise, other ENT: negative: Ear Pain, Ear Discharge, Nose Pain, Nose Discharge, Nose Congestion, Mouth Pain, Mouth Swelling, Throat Pain, Throat Swelling, Other Cardiovascular: negative: chest pain, palpitations, orthopnea, paroxysmal nocturnal dyspnea, edema, light headedness, other Gastrointestinal: negative: Nausea, Vomiting, Abdominal Pain, Diarrhea, Constipation, Melena, Hematochezia, Other Genitourinary: negative: Dysuria, Frequency, Incontinence, Hematuria, Retention , Other Musculoskeletal: negative: Neck Pain, Shoulder Pain, Arm Pain, Back Pain, Hand Pain, Leg Pain, Foot Pain, Other Skin: Rash - Medications/Allergies Allergies/Adverse Reactions: Allergies Allergy/AdvReac Type Severity Reaction Status Date / Time Penicillins Allergy Verified 12/19/17 15:47 Sulfa (Sulfonamide Allergy Verified 12/19/17 15:47 Antibiotics) bacitracin AdvReac Intermediate Rash Verified 12/20/17 10:47 Medications: Current Medications Acetaminophen (Tylenol) 650 mg PO Q4H PRN PRN Reason: Headache/Fever/Mild Pain (1-3) Hydrocodone Bitart/Acetaminophen ([place] 5/325) 1 tab PO Q4H PRN PRN Reason: Moderate Pain (4-6) Last Admin: 04/16/18 11:49 Dose: 1 tab Benzonatate (Tessalon) 100 mg PO Q6H PRN PRN Reason: Cough Clonidine (Catapres) 0.1 mg PO Q4H PRN PRN Reason: SBP > 160____ Enoxaparin Sodium (Lovenox) 40 mg SC 0900 [facility] Last Admin: 04/16/18 08:06 Dose: 40 mg Famotidine (Pepcid) 20 mg PO BID [facility] Last Admin: 04/16/18 08:05 Dose: 20 mg Guaifenesin (Robitussin Sf) 200 mg PO Q4H PRN PRN Reason: Cough Hydralazine HCl (Apresoline) 10 mg SLOW IVP Q4H PRN PRN Reason: SBP > 180 and HR < 70 Acyclovir Sodium 660 mg/ (Sodium Chloride) 113.2 mls @ 113.2 mls/hr IVPB 0100, 0900,1700 [facility] Last Admin: 04/16/18 08:05 Dose: 113.2 mls Sodium Chloride (Normal Saline 0.9%) 1,000 mls @ 75 mls/hr IV .[id number] [facility] Last Admin: 04/16/18 11:12 Dose: Not Given Lidocaine HCl (Xylocaine 2% Viscous) 15 ml SSP QIDPRN PRN PRN Reason: Mouth Irritation Last Admin: 04/16/18 05:37 Dose: 15 ml Ondansetron HCl (Zofran) 4 mg IVP Q6H PRN PRN Reason: Nausea/Vomiting
[2018-04-16 16:27] LABS: Complement-C4 Less than 2.90 mg/dL (15-57)
[2018-04-16 16:47] LABS: HBCM Index 0.04 S/CO (0-0.79); HBSAg Index 0.18 S/CO (0-0.99); Hep A IgM AB Non-Reactive (NonReactive); Hep B Surf Ag Non-Reactive S/CO (NonReactive); Hep C IgG Ab Non-Reactive (NonReactive); Hep C Index 0.06 S/CO (0-0.79); Hepatitis B Core IgM Abs Non-Reactive (NonReactive)
[2018-04-16] MEDS: Ondansetron PF 4 MG/2 ML Vial IVP PRN (20:47)
--- NOTE | 2018-04-16 22:12 | CON ---
DATE OF CONSULTATION: 04/16/2018 REASON FOR CONSULTATION: Skin eruption. HISTORY OF PRESENT ILLNESS: A 62-year-old who has a history of systemic lupus erythematosus with joint involvement, started on Benlysta, which led to admission with mouth ulcers and earlobe ulcers. The patient had a positive varicella zoster PCR from the earlobe and herpes simplex DNA PCR from the mouth ulcers was negative. Complement then was low at 4.6 and she was treated with acyclovir with improvement. She also had treatment for the stomatitis with various topical medications. The patient was released on Valtrex, Decadron tapering, and is to be transitioned to Plaquenil. For the past many weeks to months, she has had this malar rash in the nasal bridge and right and left side of the face and then around [place], she has developed blistering in the facial area mostly in the lips. She also has had chronic eruption in the distal aspect of right and left hands. She also has chronic erythematous patches, 5 or 6 around the base of the neck in the anterior chest wall region. Those have been there for many weeks. She was admitted with concern for zoster reactivation. PAST MEDICAL HISTORY: 1. SLE. 2. Herpes zoster. 3. IBS. 4. Raynaud. 5. Anxiety. PAST SURGICAL HISTORY: 1. Hysterectomy. 2. . SOCIAL HISTORY: Never smoker. CURRENT MEDICATIONS: 1. Acyclovir. 2. Catapres. 3. Lovenox. 4. Pepcid. PHYSICAL EXAMINATION: VITAL SIGNS: T-max 97.6, blood pressure 98/56, pulse 60, respirations 17. GENERAL: No distress. SKIN: Exam shows malar erythema around the nasal bridge and right and left side of the face. Pustules in the right at the midline of the lower lip and mental area as well as along the inner aspect of the lower lip. Few areas of blisters noted in the soft palate. She also has erythematous circular shaped shallow erosions along the anterior aspect of the upper chest right at the base of the neck. The patient has distal extremity purpuric eruption and few blisters there as well involving pretty much all the digits and she has this chronic fissuring and dryness of the skin of the distal lower extremities. No lymphadenopathy. Ocular movements conjugate. Conjunctiva normal. Nasal passages are patent. NECK: Supple. LUNGS: Symmetric. Clear breath sounds. No back tenderness. HEART: S1 and S2 without murmurs. No S3 or S4. ABDOMEN: Soft, not distended or tender. No ascites. No bladder distention. No pain on mobilization of any joints. No edema. Pulses 1+ dorsalis pedis. Cap refill is normal. Plantar response are flexor. Cognitive function appears to be intact. Her previous [id number] DNA was less than 0.5, complement C4 of 4.6. LABORATORY DATA: Current values of CBC; white cell count 1.2 and then 1.5, hemoglobin 10.5, platelets 165 with 32% neutrophils, 6% bands, 50% lymphocytes, 12% monocytes. Sodium 134, creatinine 0.73, AST 238, ALT 227, albumin 3.1. Previous transaminases were within normal limits. ASSESSMENT: 1. Systemic lupus erythematosus mostly with skin manifestations and joint pains on Plaquenil apparently. 2. Malar rash, which is chronic and eruption in the chest, which most likely is due to autoimmune syndrome. She also has blisters in the lower lip, which could be secondary to the autoimmune process or herpetic infection, superimposed. The distal digit eruption is probably associated with Raynaud, she may have cryoglobulinemia. We will check hepatitis serology, cryoglobulin titer quantitative, submit herpes simplex virus, PCR from the mouth ulcers. VZV PCR has been submitted already, although it is less likely to be the case. Skin biopsy with immunofluorescence probably would be indicated as well at least of the anterior chest lesions. She may benefit from a short course of corticosteroids since this whole picture could be an autoimmune flare-up. Job ID: [id number] [facility]
[2018-04-17] MEDS: Acyclovir Sodium 660 MG in Sodium Chloride 0.9% 100 ML IVPB SCH ×3 (01:29→16:47)
[2018-04-17] MEDS: Famotidine 20 MG TAB PO SCH ×2 (08:25→21:32)
[2018-04-17] MEDS: Enoxaparin Sodium 40 MG/0.4 ML SYRINGE SC SCH (08:25)
[2018-04-17] MEDS: Lidocaine Viscous Sol 2% 15 ml UD Cup SSP PRN ×2 (08:25→16:46)
[2018-04-17] MEDS: Dexamethasone 10 MG in Sodium Chloride 0.9% 50 ML IVPB SCH ×2 (09:57→21:33)
[2018-04-17] MEDS: Acetaminophen 325 MG TAB PO PRN (09:57)
[2018-04-17] MEDS: Sodium Chloride 0.9% 1,000 ML IV SCH (12:04)
--- NOTE | 2018-04-17 12:51 | PDOC.PN ---
- Subjective Encounter Start Date: 04/17/18 Encounter Start Time: 12:49 Subjective: feels better.rash still about the same -: low grade fever -: able to eat and drink - Objective MAR Reviewed: Yes Vital Signs & Weight: Vital Signs (12 hours) Temp Pulse Resp BP Pulse Ox 04/17/18 11:55 98.9 F 04/17/18 10:58 87 16 108/65 95 04/17/18 08:00 95 04/17/18 07:32 100.7 F H 83 16 107/67 95 04/17/18 04:00 97.9 F 87 20 115/71 95 Weight Weight 108 lb 8 oz I&O: 04/16/18 04/17/18 04/18/18 06:59 06:59 06:59 Intake Total 678 1900 Balance 678 1900 Result Diagrams: 04/16/18 07:17 04/16/18 07:17 Phys Exam - Physical Examination Constitutional: NAD HEENT: PERRLA, moist MMs, sclera anicteric, oral pharynx no lesions buccal vesicular rash Neck: no nodes, no JVD, supple, full ROM Respiratory: no wheezing, no rales, no rhonchi, clear to auscultation bilateral Cardiovascular: RRR, no significant murmur Gastrointestinal: soft, non-tender, no distention, positive bowel sounds Musculoskeletal: no edema, pulses present Neurological: non-focal, normal sensation, moves all 4 limbs Deviation from normal: malar rash,crusting rash on chin,nose and upper lip.scaly rash ant chest -: Redness on fingertips and Toes w some scaly rash Dx/Plan (1) Herpes zoster Code(s): B02.9 - ZOSTER WITHOUT COMPLICATIONS Status: Acute Qualifiers: Herpes zoster complications: without complications Qualified Code(s): B02.9 - Zoster without complications (2) Stomatitis Code(s): K12.1 - OTHER FORMS OF STOMATITIS Status: Acute (3) Systemic lupus erythematosus Code(s): M32.9 - SYSTEMIC LUPUS ERYTHEMATOSUS, UNSPECIFIED Status: Chronic (4) Immunosuppressed status Code(s): D89.9 - DISORDER INVOLVING THE IMMUNE MECHANISM, UNSPECIFIED Status: Chronic (5) LFTs abnormal Code(s): R94.5 - ABNORMAL RESULTS OF LIVER FUNCTION STUDIES Status: Acute - Plan plan discussed w/ family, DVT proph w/SCDs cont acyclovir for now. -: send blood and urine Cx & monitor for any more fevers -: Zoster and HSV PCR pending.enteroViral PCR pening -: Add decadron as unclear if rash is AI phenomenon. -: Request Skin Biopsy w Histopath and Immunoflorescence * . Review of Systems - Review of Systems Constitutional: fever, weakness. negative: chills, sweats, malaise, other ENT: negative: Ear Pain, Ear Discharge, Nose Pain, Nose Discharge, Nose Congestion, Mouth Pain, Mouth Swelling, Throat Pain, Throat Swelling, Other Respiratory: negative: Cough, Dry, Shortness of Breath, Hemoptysis, SOB with Excertion, Pleuritic Pain, Sputum, Wheezing Cardiovascular: negative: chest pain, palpitations, orthopnea, paroxysmal nocturnal dyspnea, edema, light headedness, other Gastrointestinal: negative: Nausea, Vomiting, Abdominal Pain, Diarrhea, Constipation, Melena, Hematochezia, Other Genitourinary: negative: Dysuria, Frequency, Incontinence, Hematuria, Retention , Other Skin: Rash - Medications/Allergies Allergies/Adverse Reactions: Allergies Allergy/AdvReac Type Severity Reaction Status Date / Time Penicillins Allergy Verified 12/19/17 15:47 Sulfa (Sulfonamide Allergy Verified 12/19/17 15:47 Antibiotics) bacitracin AdvReac Intermediate Rash Verified 12/20/17 10:47 Medications: Current Medications Acetaminophen (Tylenol) 650 mg PO Q4H PRN PRN Reason: Headache/Fever/Mild Pain (1-3) Last Admin: 04/17/18 09:57 Dose: 650 mg Hydrocodone Bitart/Acetaminophen ([place] 5/325) 1 tab PO Q4H PRN PRN Reason: Moderate Pain (4-6) Last Admin: 04/16/18 17:27 Dose: 1 tab Benzonatate (Tessalon) 100 mg PO Q6H PRN PRN Reason: Cough Clonidine (Catapres) 0.1 mg PO Q4H PRN PRN Reason: SBP > 160____ Enoxaparin Sodium (Lovenox) 40 mg SC 0900 [facility] Last Admin: 04/17/18 08:25 Dose: 40 mg Famotidine (Pepcid) 20 mg PO BID [facility] Last Admin: 04/17/18 08:25 Dose: 20 mg Guaifenesin (Robitussin Sf) 200 mg PO Q4H PRN PRN Reason: Cough Hydralazine HCl (Apresoline) 10 mg SLOW IVP Q4H PRN PRN Reason: SBP > 180 and HR < 70 Acyclovir Sodium 660 mg/ (Sodium Chloride) 113.2 mls @ 113.2 mls/hr IVPB 0100, 0900,1700 [facility] Last Admin: 04/17/18 08:25 Dose: 113.2 mls Sodium Chloride (Normal Saline 0.9%) 1,000 mls @ 75 mls/hr IV .[id number] [facility] Last Admin: 04/17/18 12:04 Dose: 1,000 mls Dexamethasone 10 mg/ Sodium (Chloride) 51 mls @ 100 mls/hr IVPB Q12HR [facility] Last Admin: 04/17/18 09:57 Dose: 51 mls Lidocaine HCl (Xylocaine 2% Viscous) 15 ml SSP QIDPRN PRN PRN Reason: Mouth Irritation Last Admin: 04/17/18 08:25 Dose: 15 ml Ondansetron HCl (Zofran) 4 mg IVP Q6H PRN PRN Reason: Nausea/Vomiting Last Admin: 04/16/18 20:47 Dose: 4 mg
[2018-04-17] MEDS ORDERED: Lidocaine 1% w/Epinephrine 1:100K 20 ML VIAL FS SCH (15:15)
[2018-04-17] MEDS: HYDROcodone/Acetaminophen 5/325 mg Tablet PO PRN (16:52)
[2018-04-17] MEDS: Ondansetron PF 4 MG/2 ML Vial IVP PRN (22:26)
[2018-04-18] MEDS: Acyclovir Sodium 660 MG in Sodium Chloride 0.9% 100 ML IVPB SCH ×3 (01:17→16:02)
[2018-04-18] MEDS: Lidocaine Viscous Sol 2% 15 ml UD Cup SSP PRN ×2 (01:17→08:49)
[2018-04-18] MEDS ORDERED: Sodium Chloride 0.65% Nasal 44 ML BOT EA NARE PRN (03:30)
[2018-04-18 08:23] LABS: ALT (SGPT) 135 U/L (8-55); AST (SGOT) 74 U/L (5-34); Albumin 2.9 g/dL (3.4-4.8); Alkaline Phosphatase 73 U/L (40-150); Anion Gap 13 mmol/L (10-20); BUN (Urea Nitrogen) 16 mg/dL (9.8-20.1); Bilirubin, Total 0.3 mg/dL (0.2-1.2); Calc. Creatinine Clearance 32 mL/min (70-130); Calcium 8.1 mg/dL (7.8-10.44); Carbon Dioxide 23 mmol/L (23-31); Chloride 105 mmol/L (98-107); Estimated GFR-MDRD 38; Globulin 2.6 g/dL (2.4-3.5); Glucose 133 mg/dL (80-115); Potassium 3.7 mmol/L (3.5-5.1); Protein, Total 5.5 g/dL (6.0-8.3); Sodium 137 mmol/L (136-145)
[2018-04-18 08:46] LABS: Band 2 % (5-11); Burr Cells MODERATE= 6-15 cells (100X) (0-1/hpf); Hemoglobin 11.2 g/dL (12.0-16.0); Lymphocytes 6 % (21-51); MDiff Complete? YES; Mean Corpuscular HGB CONC 34.9 g/dL (32.0-36.0); Mean Corpuscular Hemoglobin 32.9 pg (27.0-31.0); Mean Corpuscular Volume 94.2 fL (78.0-98.0); Mean Platelet Volume 7.4 fL (7.4-10.4); Microcytosis MODERATE=15-30 cells (100X) (0-5/hpf); Monocytes 24 % (0-10); Neutrophil 64 % (42-75); Platelet Count 202 thou/uL (130-400); Platelet Morphology Comment Appears Adequate; Polychromasia SLIGHT = 2-3 cells (100X) (0-2/hpf); RBC Distribution Width 12.5 % (11.5-14.5); Reactive Lymphocytes 4 % (0-10); Red Blood Cell (RBC) Count 3.42 mill/uL (4.20-5.40); White Blood Cell (WBC) Count 1.1 thou/uL (4.8-10.8)
[2018-04-18] MEDS: Famotidine 20 MG TAB PO SCH ×2 (08:49→20:21)
[2018-04-18] MEDS: Enoxaparin Sodium 40 MG/0.4 ML SYRINGE SC SCH (08:49)
[2018-04-18] MEDS: Dexamethasone 10 MG in Sodium Chloride 0.9% 50 ML IVPB SCH ×2 (10:04→20:20)
[2018-04-18] MEDS: Lidocaine Viscous Sol 2% 15 ml UD Cup SSP SCH ×3 (11:12→20:21)
--- NOTE | 2018-04-18 11:15 | PDOC.EVN ---
Event Note - Event Note Event Note: PROCEDURE NOTE Performing Physician: Joel Supervising Physician: Jacki PROCEDURE: Punch Biopsy (Size 4mm) of anterior chest wall The area surrounding the skin lesion was prepared in the usual manner. 1mL lidocaine with epi 1% injected. The lesion was removed in the usual manner by punch biopsy. No suture required for closure. Hemostasis achieved with pressure. Dressing applied. The patient tolerated the procedure well with no complications. Biopsy sample was taken to lab.
--- NOTE | 2018-04-18 13:17 | PDOC.PN ---
- Subjective Encounter Start Date: 04/18/18 Encounter Start Time: 13:16 Subjective: no new complaints.still w some pain in mouth -: rash stable,may be little better - Objective MAR Reviewed: Yes Vital Signs & Weight: Vital Signs (12 hours) Temp Pulse Resp BP Pulse Ox 04/18/18 11:34 97.3 F L 73 16 111/69 98 04/18/18 10:03 97.2 F L 79 16 110/68 95 04/18/18 08:00 95 04/18/18 05:00 97.2 F L Weight Admit Weight 108 lb 8 oz Weight 108 lb 8 oz I&O: 04/17/18 04/18/18 04/19/18 06:59 06:59 06:59 Intake Total 1900 1425 Balance 1900 1425 Result Diagrams: 04/18/18 07:06 04/18/18 07:06 Additional Labs: Microbiology 04/17/18 13:08 Urine voided Urine Culture - Preliminary NO GROWTH AT 12 HOURS 04/17/18 09:06 Venous blood - Right Arm Blood Culture - Preliminary Specimen has been received and culture in progress. No Growth to date. 04/17/18 09:06 Venous blood - Left Hand Blood Culture - Preliminary Specimen has been received and culture in progress. No Growth to date. Phys Exam - Physical Examination Constitutional: NAD HEENT: PERRLA, moist MMs, sclera anicteric, oral pharynx no lesions buccal lesions w crusting vesicles Neck: no nodes, no JVD, supple, full ROM Respiratory: no wheezing, no rales, no rhonchi, clear to auscultation bilateral Cardiovascular: RRR, no significant murmur, no rub Gastrointestinal: soft, non-tender, no distention, positive bowel sounds Musculoskeletal: no edema, pulses present Neurological: non-focal, normal sensation, moves all 4 limbs Psychiatric: normal affect, A&O x 3 Deviation from normal: malar rash less erythematous.zoster lesions crusting over Dx/Plan (1) Herpes zoster Code(s): B02.9 - ZOSTER WITHOUT COMPLICATIONS Status: Acute Qualifiers: Herpes zoster complications: without complications Qualified Code(s): B02.9 - Zoster without complications (2) Stomatitis Code(s): K12.1 - OTHER FORMS OF STOMATITIS Status: Acute (3) Systemic lupus erythematosus Code(s): M32.9 - SYSTEMIC LUPUS ERYTHEMATOSUS, UNSPECIFIED Status: Chronic (4) Immunosuppressed status Code(s): D89.9 - DISORDER INVOLVING THE IMMUNE MECHANISM, UNSPECIFIED Status: Chronic (5) LFTs abnormal Code(s): R94.5 - ABNORMAL RESULTS OF LIVER FUNCTION STUDIES Status: Acute - Plan plan discussed w/ family, continue antibiotics, DVT proph w/SCDs Decadron for SLErash & Acyclovir for Zoster -: Skin biopsy done.will send to IF & Histopath.appreciate FP help -: clinically stable. -: encouraged to discuss Shingrix & Benlysta w Rheum as an Op -: LFt improving.cont viscous lidociane for oral ulcers/lesions.ID following * . Review of Systems - Review of Systems Constitutional: weakness, malaise. negative: fever, chills, sweats, other Gastrointestinal: negative: Nausea, Vomiting, Abdominal Pain, Diarrhea, Constipation, Melena, Hematochezia, Other Musculoskeletal: negative: Neck Pain, Shoulder Pain, Arm Pain, Back Pain, Hand Pain, Leg Pain, Foot Pain, Other Skin: Rash, Lesions - Medications/Allergies Allergies/Adverse Reactions: Allergies Allergy/AdvReac Type Severity Reaction Status Date / Time Penicillins Allergy Verified 12/19/17 15:47 Sulfa (Sulfonamide Allergy Verified 12/19/17 15:47 Antibiotics) bacitracin AdvReac Intermediate Rash Verified 12/20/17 10:47 Medications: Current Medications Acetaminophen (Tylenol) 650 mg PO Q4H PRN PRN Reason: Headache/Fever/Mild Pain (1-3) Last Admin: 04/17/18 09:57 Dose: 650 mg Hydrocodone Bitart/Acetaminophen ([place] 5/325) 1 tab PO Q4H PRN PRN Reason: Moderate Pain (4-6) Last Admin: 04/17/18 16:52 Dose: 1 tab Benzonatate (Tessalon) 100 mg PO Q6H PRN PRN Reason: Cough Clonidine (Catapres) 0.1 mg PO Q4H PRN PRN Reason: SBP > 160____ Enoxaparin Sodium (Lovenox) 40 mg SC 0900 [facility] Last Admin: 04/18/18 08:49 Dose: 40 mg Famotidine (Pepcid) 20 mg PO BID [facility] Last Admin: 04/18/18 08:49 Dose: 20 mg Guaifenesin (Robitussin Sf) 200 mg PO Q4H PRN PRN Reason: Cough Hydralazine HCl (Apresoline) 10 mg SLOW IVP Q4H PRN PRN Reason: SBP > 180 and HR < 70 Acyclovir Sodium 660 mg/ (Sodium Chloride) 113.2 mls @ 113.2 mls/hr IVPB 0100, 0900,1700 [facility] Last Admin: 04/18/18 10:38 Dose: 113.2 mls Dexamethasone 10 mg/ Sodium (Chloride) 51 mls @ 100 mls/hr IVPB Q12HR [facility] Last Admin: 04/18/18 10:04 Dose: 51 mls Lidocaine HCl (Xylocaine 2% Viscous) 15 ml SSP 0700,1100,1600,2100 [facility] Last Admin: 04/18/18 11:12 Dose: 15 ml Ondansetron HCl (Zofran) 4 mg IVP Q6H PRN PRN Reason: Nausea/Vomiting Last Admin: 04/17/18 22:26 Dose: 4 mg Sodium Chloride ([place] Nasal [place] 0.65%) 0 ml EA NARE PRN PRN PRN Reason: Nasal Dryness
--- NOTE | 2018-04-18 14:30 | PRG ---
DATE OF SERVICE: 04/18/2018 SUBJECTIVE: Feeling better. Skin lesions are drying up. No significant odynophagia. No dyspnea or chest pain. No abdominal pain or diarrhea. Temperature has been normal for the past 24 to 48 hours. All the areas of erythema are subsiding. Her skin blisters and mouth blisters are drying up as well. OBJECTIVE: LUNGS: Clear. HEART: S1 and S2. Regular rate. No S3 or S4. ABDOMEN: Soft, nondistended. LABORATORY DATA: White cell count 1.1, hemoglobin 11, platelets 202 with 64% neutrophils, 2% bands, 24% monocytes. Immunology with a C3/C4 decreased. Hepatitis serology negative. Herpes assays are pending. ASSESSMENT AND DISCUSSION: Systemic lupus erythematosus with skin manifestations, likely autoimmune skin manifestations rather than herpetic lesions at this time. Continue corticosteroids. Consider switching to prednisone orally. Wait on viral results. If negative, then consider discharge planning with oral prednisone. Follow up with mass communications instructor. Job ID: [id number]
[2018-04-18 22:07] LABS: HSV 2 - DNA Negative (Negative)
[2018-04-19] MEDS: Acyclovir Sodium 660 MG in Sodium Chloride 0.9% 100 ML IVPB SCH ×2 (01:18→08:48)
[2018-04-19] MEDS: Lidocaine Viscous Sol 2% 15 ml UD Cup SSP SCH ×4 (06:00→20:52)
[2018-04-19] MEDS: Enoxaparin Sodium 40 MG/0.4 ML SYRINGE SC SCH (08:09)
[2018-04-19] MEDS: Dexamethasone 10 MG in Sodium Chloride 0.9% 50 ML IVPB SCH (08:09)
[2018-04-19] MEDS: Famotidine 20 MG TAB PO SCH ×2 (08:09→20:52)
[2018-04-19 09:11] LABS: Anion Gap 13 mmol/L (10-20); BUN (Urea Nitrogen) 18 mg/dL (9.8-20.1); Calc. Creatinine Clearance 38 mL/min (70-130); Calcium 8.5 mg/dL (7.8-10.44); Carbon Dioxide 24 mmol/L (23-31); Chloride 103 mmol/L (98-107); Estimated GFR-MDRD 46; Glucose 117 mg/dL (80-115); Potassium 3.4 mmol/L (3.5-5.1); Sodium 137 mmol/L (136-145)
[2018-04-19 09:37] LABS: Anisocytosis SLIGHT = 6-15 cells (100X) (0-5/hpf); Band 8 % (5-11); Elliptocytes SLIGHT = 2-5 cells (100X) (0-1/hpf); Eosinophils 1 % (0-10); Hemoglobin 10.6 g/dL (12.0-16.0); Lymphocytes 8 % (21-51); MDiff Complete? YES; Mean Corpuscular HGB CONC 33.6 g/dL (32.0-36.0); Mean Corpuscular Hemoglobin 31.3 pg (27.0-31.0); Mean Corpuscular Volume 93.2 fL (78.0-98.0); Mean Platelet Volume 7.1 fL (7.4-10.4); Monocytes 2 % (0-10); Neutrophil 81 % (42-75); Platelet Count 239 thou/uL (130-400); Platelet Morphology Comment Appears Adequate; RBC Distribution Width 12.6 % (11.5-14.5)
[2018-04-19] MEDS: Acetaminophen 325 MG TAB PO PRN (11:06)
[2018-04-19 14:19] LABS: Varicella Zoster IgM ABS Less than 0.91 index (0.00-0.90)
--- NOTE | 2018-04-19 15:45 | PDOC.PN ---
- Subjective Encounter Start Date: 04/19/18 Encounter Start Time: 15:42 Ms. Ziegler was seen today in follow-up of generalized rash. Other than some soreness on her chin, and below her nose, she is feeling ok. She feels a bit fatigued. She denies feeling short of breath, denies any cough or congestion. - Objective MAR Reviewed: Yes Vital Signs & Weight: Vital Signs (12 hours) Temp Pulse Resp BP Pulse Ox 04/19/18 13:10 97.3 F L 63 16 125/67 97 04/19/18 08:09 96 04/19/18 08:00 97.3 F L 61 18 124/74 96 Weight Admit Weight 108 lb 8 oz Weight 108 lb 8 oz I&O: 04/18/18 04/19/18 04/20/18 06:59 06:59 06:59 Intake Total 1425 1000 Balance 1425 1000 Result Diagrams: 04/19/18 08:34 04/19/18 08:34 Phys Exam - Physical Examination HEENT: PERRLA Respiratory: no wheezing, no rales, no rhonchi, clear to auscultation bilateral Cardiovascular: RRR, no significant murmur, no rub Gastrointestinal: soft, non-tender, positive bowel sounds Musculoskeletal: no edema + gebneralized crusting, macular rash on the face, and upper chest finger tips, and toes. Dx/Plan (1) Stomatitis Code(s): K12.1 - OTHER FORMS OF STOMATITIS Status: Acute (2) Systemic lupus erythematosus Code(s): M32.9 - SYSTEMIC LUPUS ERYTHEMATOSUS, UNSPECIFIED Status: Chronic - Plan * Generalized rash- likely from SLE flair. Her complement levels are low, and her VZV IGM level as well. Discussed with Dr. Izquierdo * Will continue steroids, but change her to Prednisone * Monitor her progress over the next day or two * Hopefully home soon.
[2018-04-19] MEDS ORDERED: predniSONE 20 MG TAB PO SCH (18:00)
[2018-04-20] MEDS: Lidocaine Viscous Sol 2% 15 ml UD Cup SSP SCH ×4 (08:41→20:30)
[2018-04-20] MEDS: Famotidine 20 MG TAB PO SCH (08:41)
[2018-04-20] MEDS: predniSONE 20 MG TAB PO SCH (08:41)
[2018-04-20] MEDS: Enoxaparin Sodium 40 MG/0.4 ML SYRINGE SC SCH (08:42)
--- NOTE | 2018-04-20 14:03 | PDOC.PN ---
- Subjective Encounter Start Date: 04/20/18 Encounter Start Time: 14:02 Ms. Ziegler was seen today in follow-up. She notes improvement of the rash, but she had an episode earlier, in which she had some trouble word finding. It lasted only a few minutes, but happened a about 3 times. - Objective MAR Reviewed: Yes Vital Signs & Weight: Vital Signs (12 hours) Temp Pulse Resp BP Pulse Ox 04/20/18 08:00 97 04/20/18 07:43 97.1 F L 78 16 118/75 97 Weight Admit Weight 108 lb 8 oz Weight 108 lb 8 oz I&O: 04/19/18 04/20/18 04/21/18 06:59 06:59 06:59 Intake Total 1000 1100 Balance 1000 1100 Result Diagrams: 04/19/18 08:34 04/19/18 08:34 Phys Exam - Physical Examination HEENT: PERRLA Respiratory: no wheezing, no rales, no rhonchi, clear to auscultation bilateral Cardiovascular: RRR, no significant murmur, no rub Gastrointestinal: soft, non-tender, no distention, positive bowel sounds Musculoskeletal: no edema Neurological: non-focal, normal sensation, moves all 4 limbs Dx/Plan (1) Stomatitis Code(s): K12.1 - OTHER FORMS OF STOMATITIS Status: Acute (2) Systemic lupus erythematosus Code(s): M32.9 - SYSTEMIC LUPUS ERYTHEMATOSUS, UNSPECIFIED Status: Chronic - Plan * SLE flare with rash/dermatitis- continue Prednisone * Word finding difficulty- will start aspirin now, and check for lupus anticoagulant * Check an EKG * Monitor in the hospital one more night.
[2018-04-20] MEDS ORDERED: Aspirin 325 MG TAB PO SCH (14:15)
[2018-04-20 16:40] LABS: INR-International Normal Ratio 0.9; PTT 28.1 SEC (22.9-36.1); Prothrombin Time 12.5 SEC (12.0-14.7)
[2018-04-21] MEDS: Lidocaine Viscous Sol 2% 15 ml UD Cup SSP SCH ×4 (05:30→16:40)
[2018-04-21] MEDS: Aspirin 325 MG TAB PO SCH (08:45)
[2018-04-21] MEDS: predniSONE 20 MG TAB PO SCH (08:45)
[2018-04-21] MEDS: Enoxaparin Sodium 40 MG/0.4 ML SYRINGE SC SCH (08:46)
--- NOTE | 2018-04-21 09:28 | PDOC.PN ---
- Subjective Encounter Start Date: 04/21/18 Encounter Start Time: 09:26 Ms. Ziegler was seen today in follow-up. She is again having difficulty finding her words, and difficulty with her thought process. - Objective MAR Reviewed: Yes Vital Signs & Weight: Vital Signs (12 hours) Temp Pulse Resp BP Pulse Ox 04/21/18 08:00 95 04/21/18 07:35 97.5 F L 56 L 16 119/73 95 04/21/18 04:00 97.1 F L 81 16 126/72 98 Weight Admit Weight 108 lb 8 oz Weight 108 lb 8 oz I&O: 04/20/18 04/21/18 04/22/18 06:59 06:59 06:59 Intake Total 1100 1800 Balance 1100 1800 Result Diagrams: 04/19/18 08:34 04/19/18 08:34 Phys Exam - Physical Examination HEENT: PERRLA Respiratory: no wheezing, no rales, no rhonchi, clear to auscultation bilateral Cardiovascular: RRR, no significant murmur, no rub Gastrointestinal: soft, non-tender, no distention, positive bowel sounds Musculoskeletal: no edema, pulses present Neurological: non-focal, moves all 4 limbs Muscle strength is 5/5 in both upper and lower extremities Psychiatric: normal affect Deviation from normal: + rash is improving Dx/Plan (1) Encephalopathy acute Code(s): G93.40 - ENCEPHALOPATHY, UNSPECIFIED Status: Acute (2) Stomatitis Code(s): K12.1 - OTHER FORMS OF STOMATITIS Status: Acute (3) Systemic lupus erythematosus Code(s): M32.9 - SYSTEMIC LUPUS ERYTHEMATOSUS, UNSPECIFIED Status: Chronic (4) Encephalopathy acute Code(s): G93.40 - ENCEPHALOPATHY, UNSPECIFIED Status: Acute - Plan * Acute encephalopathy- ? etiology- is this related to Lupus Cerebritis, vs. CVA , vs. Steroid reaction- will check an MRI with and without contrast of the brain , and move to the stroke unit once a bed is available * Continue aspirin * Will contact her Assistant County Engineer * She has been off Plaquenil ( she took herself off a few weeks ago)- may need to re-start this * SLE- dermatitis- improving
--- NOTE | 2018-04-21 10:06 | PQF ---
CLINICAL DOCUMENTATION IMPROVEMENT CLARIFICATION FORM: ICD-10 Updated PLEASE DO AN ADDENDUM TO THE PROGRESS NOTE WITH ANY DOCUMENTATION UPDATES OR ADDITIONS AND CARRY THROUGH TO DC SUMMARY. THANK YOU. Date: 04/21/18 ATTN: DR. FLEMING Please exercise your independent, professional judgment in responding to the clarification form. Clinical indicators are provided on the bottom of this form for your review Please check appropriate box(s): [X ] Protein Calorie Malnutrition: [ ] Mild [ X ] Moderate [ ] Severe [ ] Other Malnutrition (please specify) __ [ ] Underweight without malnutrition [ ] Cachexia [ ] Other diagnosis [ ] Unable to determine In addition, please specify: Present on Admission (POA): [ X ] Yes [ ] No [ ] Unable to determine CLINICAL INDICATORS - SIGNS / SYMPTOMS / LABS DIETARY NOTE 04/17: "TRIGGERED FOR WEIGHT LOSS / UNDERWEIGHT...NUTRITION DIAGNOSIS- INCREASED NEEDS, H/O POOR PO INTAKE" BMI 16.0 ALBUMIN 2.8 RISKS: H/O LUPUS STOMATITIS H/O IBS TREATMENT: NUTRITIONAL SUPPLEMENTS DIETARY CONSULT Moderate Malnutrition (in acute illness) Energy Intake: <75% of estimated energy requirement for > 7 days Weight Loss: 1-2%/1 week; 5%/ 1 month; 7.5%/3 months Other: mild body fat loss; mild muscle mass loss; mild fluid accumulation; Severe Malnutrition (in acute illness) Energy Intake: < 50% of estimated energy requirement for > 5 days Weight Loss: >1-2%/1 week; >5%/1 month; >7.5%/3 months Other: moderate body fat loss; moderate muscle mass loss; moderate- severe fluid accumulation; 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 Moderate Malnutrition (in chronic illness) Energy Intake: <75% of estimated energy requirement for >1 month Weight Loss: 5%/1 month; 7.5%/3 months; 10%/6 months; 20%/1 year Other: mild body fat loss; mild muscle mass loss; mild fluid accumulation Severe Malnutrition (in chronic illness) Energy Intake: <75% of estimated energy requirement for >1 month Weight Loss: >5%/1 month; >7.5%/3 months; >10%/6 months; >20%/1 year Other: severe body fat loss; severe muscle mass loss; severe fluid accumulation ; measurably reduced industrial engineering director strength (This form is maintained as a part of the permanent medical record) 2014 [employer]. All Rights Reserved NISHI [email or web address] Office: [phone] [facility]
[2018-04-21] MEDS ORDERED: Lorazepam 2 MG/ML VIAL SLOW IVP PRN (10:15)
--- NOTE | 2018-04-21 10:24 | PDOC.EVN ---
Event Note - Event Note Event Note: Discussed the patient's condition with Dr. Kirkland who says she will see her today.
[2018-04-21] MEDS ORDERED: ISOVUE-370 76%-LOCM 1 ML ONE (11:46)
[2018-04-21] MEDS ORDERED: Gadobenate Dimeglumine 529 MG/1 ML (20ML VIAL) ONE (11:48)
[2018-04-21 11:49] LABS: DRVVT Confirm 33.7; DRVVT Screen 31.9 SEC (20-50); HEX PHOS LA Tube 1 44.7 SEC
[2018-04-21 11:53] LABS: Factor VIII Test 489.8 % ACTIVE (56-157); HEX PHOS LA Tube 2 41.6 SEC; Hexagonal Phospholipid Neut 3.1 SEC (0-8.0)
--- NOTE | 2018-04-21 13:53 | MRI ---
BRAIN MRI WITH AND WITHOUT CONTRAST: HISTORY: Confusion. Difficulty finding words x2 days. History of lupus. COMPARISON: None. TECHNIQUE: A brain MRI is performed with and without intravenous Gadolinium administration. Multisequential, mu ltiplanar imaging is performed. FINDINGS: No hemorrhage on the axial gradient echo sequence. The calvarium has a normal T1 marrow signal intensity. The midline brain parenchymal structures are unremarkable. No parenchymal mass, mass effect, or midline shift. Age appropriate brain volume. Cortical delgado whi te matter differential is preserved. The ventricles and sulci are patent and symmetric. T2 and FLAIR white matter hyperintensities due to chronic small vessel ischemic change. Central arterial flow voids are maintained. Absent restricted diffusion. Mild mucosal disease involving the ethmoid air cells. Adequate mastoid air cell aeration. No pathologic enhancement of the brain parenchyma. IMPRESSION: 1. Absent restricted diffusion. No acute infarct. 2. No pathologic enhancement of the brain parenchyma. 3. There are chronic small vessel ischemic changes of the white matter. POS: [facility]
[2018-04-21 16:41] LABS: Cardiolipin IgG Ab 0.7 GPL-U/mL (<10 Negative); Cardiolipin IgM Ab 8.6 MPL-U/mL (<10 Negative); EliA APS New Method **** NEW METHOD ****; beta-2-Glycoprotein I IgA Ab 0.9 U/mL (<7 Negative); beta-2-Glycoprotein I IgG Ab 0.9 U/mL (<7 Negative); beta-2-Glycoprotein I IgM Abs 3.2 U/mL (<7 Negative); dsDNA IgG Antibody Less than 0.5 IU/mL (<10 Negative)
[2018-04-21] MEDS: Sodium Chloride 0.9% 1,000 ML IV SCH (17:44)
[2018-04-21] MEDS: Mycophenolate 250 MG CAP PO SCH (17:49)
[2018-04-21 18:15] LABS: #Lymphocytes 0.4 thou/uL (1.20-3.40); #Monocytes 0.5 thou/uL (0.11-0.59); #Neutrophils 3.7 thou/uL (1.40-6.50); %Eosinophils 0.2 % (0.0-10.0); %Lymphocytes 7.6 % (21.0-51.0); %Monocytes 10.4 % (0.0-10.0); %Neutrophils 81.8 % (42.0-75.0); Hemoglobin 11.2 g/dL (12.0-16.0); Mean Corpuscular HGB CONC 34.2 g/dL (32.0-36.0); Mean Corpuscular Hemoglobin 32.4 pg (27.0-31.0); Mean Corpuscular Volume 94.9 fL (78.0-98.0); Mean Platelet Volume 7.2 fL (7.4-10.4); Platelet Count 300 thou/uL (130-400); RBC Distribution Width 12.4 % (11.5-14.5); Red Blood Cell (RBC) Count 3.45 mill/uL (4.20-5.40); White Blood Cell (WBC) Count 4.6 thou/uL (4.8-10.8)
[2018-04-21 18:48] LABS: ALT (SGPT) 181 U/L (8-55); AST (SGOT) 97 U/L (5-34); Albumin 3.3 g/dL (3.4-4.8); Alkaline Phosphatase 102 U/L (40-150); Anion Gap 17 mmol/L (10-20); BUN (Urea Nitrogen) 19 mg/dL (9.8-20.1); Bilirubin, Total 0.3 mg/dL (0.2-1.2); CK (CPK) 27 U/L (29-168); Calc. Creatinine Clearance 47 mL/min (70-130); Calcium 8.6 mg/dL (7.8-10.44); Carbon Dioxide 24 mmol/L (23-31); Chloride 99 mmol/L (98-107); Estimated GFR-MDRD 58; Globulin 2.8 g/dL (2.4-3.5); Glucose 162 mg/dL (80-115); LDH 348 U/L (125-220); Potassium 3.1 mmol/L (3.5-5.1); Protein, Total 6.1 g/dL (6.0-8.3); Sodium 137 mmol/L (136-145)
--- NOTE | 2018-04-21 20:15 | CT ---
CT ABDOMEN WITH AND WITHOUT CONTRAST: 04/21/2018 HISTORY: A 62-year-old female with abnormal liver function tests and abnormal appearance of the liver on [facility] ultrasound of 04/16/2018. TECHNIQUE: Oral contrast: Administered. IV contrast: Isovue-370 70 mL. Pre-contrast, arterial phase, and portal venous phase, scans performed from the lung bases to the abdiel ac crests. FINDINGS: There is decreased enhancement of the parenchyma, including the cortices, of the bilateral renal uppe r poles. The right kidney is smaller than the left, and this is at least in part due to multiple par enchymal defects, representing scarring, of the right renal lower pole and mid pole. There are dilat ed bilateral extrarenal pelves, but no dilation of the minor calyces. No renal calculus or proximal ureteral calculus. The liver has diffusely normal attenuation on the noncontrast scan. The arterial and venous phases demonstrate normal, homogeneous enhancement of the liver. No solid or cystic hepa tic mass lesion, and no infiltrative lesion. No portal vein thrombosis or thrombosis of the hepatic veins, or intrahepatic portion of the IVC. The extrahepatic portion of the IVC, inferior to the live r, is collapsed. No abdominal aortic aneurysm. No pancreatitis or pancreatic mass. Normal adrenals and spleen. No small bowel dilation. No lymphadenopathy involving the retroperitoneum, the katty h epatis, or the mesentery. Limited evaluation of the colon. The gallbladder is contracted. The abnormal appearance of the liver parenchyma on the ultrasound of 04/16/2018 could have been due t o technical factors. Alternatively, it could have been due to fatty liver which has subsequently res olved. IMPRESSION: 1. Decreased enhancement of bilateral renal upper pole parenchyma: This could represent bilateral re nal upper pole pyelonephritis. Recommend clinical correlation. 2. Extensive scarring of the right renal mid and lower poles, consistent with prior insults, such as prior infarctions or prior infections. 3. Normal liver. 4. Contracted gallbladder. POS: [facility]
--- NOTE | 2018-04-21 23:24 | CON ---
DATE OF CONSULTATION: 04/21/2018 REASON FOR CONSULTATION: Evaluation for REGIONAL PROPERTY MANAGER lupus. HISTORY OF PRESENT ILLNESS: Ms. Ziegler is a 62-year-old white female, well known to me, with past medical history of SLE with severe skin and mucosal involvement, who has recently been having more problems with her lupus being active. She was started on Benlysta injections, outpatient, and did not tolerate this with worsening of skin lesions after trying this on 2 occasions. In her most recent clinic visit, which was about 3 weeks ago, the decision was made to give a trial of CellCept given her active lupus with her skin disease being most active. She took this for a few days, but had worsening of skin lesions. 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 She started to have severe nausea and vomiting, as well as worsening of skin lesions and then was admitted to [facility] for further evaluation. Since admission, she has received evaluation with Infectious Disease, who does not feel that at this point her rash is from an infectious etiology. She also had a skin biopsy that was also consistent with lupus. She was improving since starting IV steroids. The IV steroids were discontinued 2 days ago. Starting yesterday morning, she started to have problems with word finding and occasional hallucinations. Her daughter notes that since starting Ativan earlier today, the patient is much better and pretty much back to her normal self. She notes her skin lesions to continue to improve. She has not been taking Plaquenil or CellCept since admission or any of her other medications. PAST MEDICAL HISTORY: SLE as above. 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 FAMILY HISTORY: No known history of autoimmune disease. REVIEW OF SYSTEMS: A 12-point review of systems is negative except for as per above. PHYSICAL EXAMINATION: VITAL SIGNS: She is afebrile. Blood pressure 115/72, heart rate 81. HEENT: Normocephalic, atraumatic. Pupils are equally round and reactive to light and accommodation. Extraocular muscles are intact. Oropharynx shows ulcerations on the mucosa. There are hyperkeratotic lesions along the eyebrows, malar area and along the chin. CHEST: Lungs have decreased breath sounds at the bases. HEART: Has a regular rate and rhythm. ABDOMEN: Soft, nontender to palpation. Positive bowel sounds. EXTREMITIES: No cyanosis or clubbing. Periungual erythema is noted. SKIN: There is rash noted on the hands and anterior chest consistent with SLE. Discoid lesions noted. NEUROLOGIC: Cranial nerves 2 through 12 are grossly intact. The patient is alert and oriented x3. LABORATORY DATA: Labs are reviewed. Hemoglobin 10.6, white blood cell count 3000, it was 1.2 on admission. Absolute lymphopenia also noted. Platelets normal. MCV is normal. CMP notable for creatinine of 1.19, this is higher than before. Transaminases are also elevated, but improves from admission. She has never had elevated transaminases before. C3 low at 82, C4 is not detectable. Hepatitis panel is negative. Abdominal ultrasound shows common duct dilatation as well as diffuse heterogeneous echogenicity of the liver that could be consistent with malignancy or hepatic steatosis. MRI of the brain shows no evidence of cerebritis, stroke, or RPLS-I reviewed this with the radiologist as well. ASSESSMENT AND PLAN: This is a 62-year-old white female with past medical history of systemic lupus erythematosus, with current flare-up, initially involving the skin and mucosal areas. Question of REGIONAL PROPERTY MANAGER involvement. I do not think that she has cerebritis though neuropsychiatric lupus is on the differential. Anxiety could also be responsible for some other symptoms as she so quickly responded to anxiolytics. We will further evaluate her disease activity with urinalysis and further serology to evaluate for possible evidence of lupus nephritis given increase in creatinine. We would also go ahead and proceed with the CT of the liver as this is a new finding and her abdominal ultrasound is grossly abnormal. We will go ahead and restart CellCept and Plaquenil. Continue the prednisone 40 mg as she is receiving at this time. She may also need some medication for anxiety. She may need Cytoxan given the severity of her lupus, but would evaluate above prior to that. I also discussed with the hospitalist starting some IV fluids given increase in creatinine since admission. Job ID: [id number]
[2018-04-22] MEDS: Lidocaine Viscous Sol 2% 15 ml UD Cup SSP SCH ×4 (00:04→16:49)
[2018-04-22 06:58] LABS: Anion Gap 14 mmol/L (10-20); BUN (Urea Nitrogen) 16 mg/dL (9.8-20.1); Calc. Creatinine Clearance 52 mL/min (70-130); Calcium 8.6 mg/dL (7.8-10.44); Carbon Dioxide 27 mmol/L (23-31); Chloride 101 mmol/L (98-107); Estimated GFR-MDRD 66; Glucose 82 mg/dL (80-115); Sodium 139 mmol/L (136-145)
[2018-04-22] MEDS ORDERED: Hydroxychloroquine Sulfate 200 MG TAB PO SCH (08:00)
[2018-04-22] MEDS ORDERED: Potassium Chloride 20 MEQ TAB PO SCH (08:15)
[2018-04-22 08:28] LABS: Cardiac Risk 4.9 (Less than 4.5); Magnesium 1.7 mg/dL (1.6-2.6)
[2018-04-22] MEDS: Enoxaparin Sodium 40 MG/0.4 ML SYRINGE SC SCH (09:26)
[2018-04-22] MEDS: predniSONE 20 MG TAB PO SCH (09:27)
[2018-04-22] MEDS: Aspirin 325 MG TAB PO SCH (09:27)
[2018-04-22] MEDS: Mycophenolate 250 MG CAP PO SCH ×2 (09:27→16:49)
[2018-04-22] MEDS: Sodium Chloride 0.9% 1,000 ML IV SCH (09:28)
[2018-04-22 10:07] LABS: Bilirubin Negative (Negative); Blood, Urine Trace (Negative); Clarity CLEAR (Clear); Glucose, Urine (Dipstick) Negative (Negative); Leukocyte Small (Negative); Nitrite Negative (Negative); Protein, Urine (Dipstick) Negative (Neg-Trace); Specific Gravity, Urine 1.012 (1.002-1.036)
[2018-04-22 10:09] LABS: Bacteria/HPF None Seen HPF (None Seen); Hyaline Casts/LPF 0-3 HYALINE CAST LPF (0-3 Hyaline); Squamous Epithelial 0-3 HPF (0-3)
[2018-04-22 10:23] LABS: Creatinine, Urine 29.09 mg/dL (47-110); Microalbumin Urine 2.9 mg/dL (0.5-50.0); Microalbumin/Creat Ratio 99.7 mg/g (Less than 30)
--- NOTE | 2018-04-22 11:32 | PDOC.PN ---
- Subjective Encounter Start Date: 04/22/18 Encounter Start Time: 11:30 Ms. Ziegler was seen today in follow-up of SLE with flair . She has not had any difficulty with word finding. It seemed to respond best to Ativan. - Objective MAR Reviewed: Yes Vital Signs & Weight: Vital Signs (12 hours) Temp Pulse Resp BP Pulse Ox 04/22/18 08:00 98.5 F 66 16 142/85 H 100 04/22/18 04:15 97.7 F 57 L 12 142/92 H 98 Weight Admit Weight 108 lb 8 oz Weight 108 lb 8 oz I&O: 04/21/18 04/22/18 04/23/18 06:59 06:59 06:59 Intake Total 1800 Balance 1800 Result Diagrams: 04/21/18 18:00 04/22/18 06:10 Phys Exam - Physical Examination HEENT: PERRLA + scaling rash, with erythematous base Respiratory: no wheezing, no rales, no rhonchi, clear to auscultation bilateral Cardiovascular: RRR, no significant murmur, no rub Gastrointestinal: soft, non-tender, no distention, positive bowel sounds Musculoskeletal: no edema, pulses present Dx/Plan (1) Stomatitis Code(s): K12.1 - OTHER FORMS OF STOMATITIS Status: Acute (2) Systemic lupus erythematosus Code(s): M32.9 - SYSTEMIC LUPUS ERYTHEMATOSUS, UNSPECIFIED Status: Chronic (3) Altered mental status Code(s): R41.82 - ALTERED MENTAL STATUS, UNSPECIFIED Status: Acute (4) Hypokalemia Code(s): E87.6 - HYPOKALEMIA Status: Acute - Plan * SLE with flair, with dermatitis- improving continue Prednisone, and Plaquenil * Mental status changes- resolved, will continue aspirin., and EEG is pending * Hypokalemia- replace
--- NOTE | 2018-04-22 14:13 | PQF ---
CLINICAL DOCUMENTATION IMPROVEMENT CLARIFICATION FORM: ICD-10 Updated PLEASE DO AN ADDENDUM TO THE PROGRESS NOTE WITH ANY DOCUMENTATION UPDATES OR ADDITIONS AND CARRY THROUGH TO DC SUMMARY. THANK YOU. DATE: 04/22/18 ATTN: DR. FLEMING Please exercise your independent, professional judgment in responding to the clarification form. Clinical indicators are provided on the bottom of this form for your review Please check appropriate box(s): [ X ] Encephalopathy: Type: [ X] Acute [ ] Subacute [ ] Chronic Etiology: [ ] Hypertensive [ X ] Metabolic [ ] Toxic [ ] Hepatic with Coma [ ] Hepatic w/o Coma [ ] Hypoxic [ ] Septic [ ] Drug induced: [ ] Unspecified [ ] in the setting of underlying dementia [ ] Other (please specify) [ ] Transient Alteration of Awareness [ X ] Other diagnosis __SLE [ ] Unable to determine In addition, please specify: Present on Admission (POA): [ ] Yes [X ] No [ ] Unable to determine For continuity of documentation, please document condition throughout progress notes and discharge summary. Thank You. CLINICAL INDICATORS - SIGNS / SYMPTOMS / LABS PROGRESS NOTE 04/21: "ACUTE ENCEPHALOPATHY...? ETIOLOGY- IS THIS RELATED TO LUPUS CEREBRITIS VS CVA VS STEROID REACTION" PROGRESS NOTE (NEURO) 04/21: "STARTING YESTERDAY MORNING, SHE STARTED TO HAVE PROBLEMS WITH WORD FINDING AND OCCASIONAL HALLUCINATIONS." "MRI OF THE BRAIN SHOWS NO EVIDENCE OF CEREBRITIS, STROKE, OR RPLS- I REVIEWED THIS WITH THE RADIOLOGIST WELL. RISKS: H/O LUPUS USE OF STEROIDS / RULE OUT REACTION TREATMENT: MRI BRAIN NEUROLOGY CONSULT EEG IV ATIVAN (04/21-PRESENT) [employer] (This form is maintained as a part of the permanent medical record) 2014 [employer]. All Rights Reserved NISHI [email or web address] Office: [phone] [facility] MEDICAL CENTERMartinez
[2018-04-22 16:02] VITALS: BP 106/65; TEMP 98.4
--- NOTE | 2018-04-22 21:07 | CON ---
DATE OF CONSULTATION: 04/22/2018 TYPE OF CONSULTATION: Neurologic Consultation CONSULTING PHYSICIAN: Hospitalist Service. IMPRESSION: Transient speech arrest, possibly secondary to subclinical seizure activity. PLAN: I will monitor for further events as an outpatient to determine whether further treatment is needed. HISTORY OF PRESENT ILLNESS: Ms. Ziegler is a 62-year-old white female with a history of lupus. She has been on low-dose steroids for some time now. She had a flare up of her lupus. Recently, her dose was increased to 40 mg of prednisone. Next day, she started acting a bit odd. She notes that she was having trouble thinking clearly and finding the words she was trying to speak. There was some period of amnesia when IV was put in her arm. She was given a dose of Ativan and remarkably her symptoms cleared up. She has never had anything like this before. Upon clearing, she did not have any type of migraine headache. She has no other focal complaints. She had an MRI of the brain done, which did not show any evidence of acute injury. Her EEG showed a normal background without any epileptiform features. Her lab work was otherwise negative. PAST MEDICAL HISTORY: Lupus. SOCIAL HISTORY: No tobacco or alcohol use. ALLERGIES: PENICILLIN, SULFA. FAMILY HISTORY: Noncontributory. MEDICATIONS: Medication list was reviewed. REVIEW OF SYSTEMS: Ten-system review was otherwise unremarkable. PHYSICAL EXAMINATION: GENERAL: She is a thin, middle-aged woman, in no acute distress. HEENT: Pupils are equal and reactive. Conjunctiva clear. Oropharynx clear. SKIN: There are multiple lesions over the face and chest. NECK: Supple. EXTREMITIES: No cyanosis, clubbing, or edema. NEUROLOGIC: She is alert and appropriate. Her speech is fluent and clear. Cranial nerves 2 through 12 are intact. Motor exam showed equal cement mason maintenance strength. There is no fix or drift. No tremor or dysmetria present. Sensation was intact to touch. Reflexes were symmetric. EKG showed a sinus rhythm. SUMMARY: It is an unusual case of transient encephalopathy that cleared following a dose of Ativan. Subclinical seizure would seem to be the most likely possibility. There is no evidence of structural etiology. I would like to follow her as an outpatient to see if any further treatment is needed. Job ID: [id number]
--- NOTE | 2018-04-23 02:16 | DIS ---
DATE OF ADMISSION: 04/15/2018 DATE OF DISCHARGE: 04/22/2018 PRIMARY CARE PHYSICIAN: Dr. Palomo. DISCHARGE DISPOSITION: Home. PRIMARY DISCHARGE DIAGNOSIS: 1. Acute lupus flare with lupus dermatitis. 2. Altered mental status. Unknown etiology. 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 3. Elevated liver function tests, likely related to lupus flare as well as acute kidney injury due to lupus flare. DISCHARGE MEDICATIONS: Include: 1. Prednisone 40 mg daily. 2. Protonix 40 mg daily. 3. CellCept 500 mg twice daily. 4. Aspirin 81 mg daily. 5. Plaquenil 300 mg daily. PROCEDURES DONE DURING THE ADMISSION: The patient had an abdominal ultrasound showing the common duct was dilated at 9 mm. There was some diffuse echogenicity of the liver, which could represent hepatic steatosis versus an infiltrative process. The patient had an MRI of the brain, which was significant for some chronic small-vessel disease. 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 CODE STATUS: Full code. ALLERGIES: 1. PENICILLIN. 2. SULFA. 3. BACITRACIN. HOSPITAL COURSE: Ms. Ziegler is a pleasant 62-year-old female who came to the emergency room due to a severe rash that was on her face as well as her upper chest and the tips of her fingers and toes. It was originally thought to be possibly disseminated zoster. Her primary care physician referred her to the emergency room for evaluation. She was admitted and started initially on IV acyclovir and Dr. Izquierdo was consulted with Infectious Disease. A biopsy of the lesions were obtained as well as serum studies for varicella zoster, IgM and as well as the DNA assay. These were negative and the biopsy was consistent with possible lupus and showing dermal lymphohistiocytic infiltrate. She was placed on prednisone and the acyclovir was discontinued and demonstrating rapid improvement in the rash. She had an episode where she was having some difficulty with word finding and memory, which was thought to be possibly a transient ischemic attack. She was moved to the Stroke Unit and an MRI was obtained, which was negative. EKG was done, which was normal sinus rhythm. Her outpatient facility physical therapist as well as neurologist were consulted. The patient was placed on aspirin. The episode actually happened several times in the hospital and she got the most complete and fastest resolution of the episode with Ativan. Therefore, it was thought that this might be some type of neuropsychiatric lupus flare and therefore stroke and TIA were ruled out. Her outpatient facility physical therapist also placed her back on Plaquenil as well as added CellCept and she is currently stable for discharge home. She is to have close outpatient follow up with her outpatient facility physical therapist and Neurology as needed. Job ID: [id number]
--- NOTE | 2018-04-23 08:40 | EEG ---
Referring Physician: David WARE EEG # [id number] TEST TYPE: ROUTINE PORTABLE INPATIENT REPORT: AN EEG USING THE INTERNATIONAL TEN-TWENTY SYSTEM OF ELECTRODE PLACEMENT WAS PERFORMED. The waking background is a medium amplitude 9 hertz alpha frequency. The patient remained awake throughout the study. Hyperventilation and photic stimulation were unremarkable. No epileptiform features were seen. IMPRESSION: THIS IS A NORMAL AWAKE EEG. 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
[2018-04-23 13:02] LABS: dsDNA IgG Antibody Less than 0.5 IU/mL (<10 Negative)
[2018-04-23 13:16] LABS: Cardiolipin IgG Ab 0.6 GPL-U/mL (<10 Negative); Cardiolipin IgM Ab 4.8 MPL-U/mL (<10 Negative); EliA APS New Method **** NEW METHOD ****; beta-2-Glycoprotein I IgA Ab 0.8 U/mL (<7 Negative); beta-2-Glycoprotein I IgG Ab 0.8 U/mL (<7 Negative); beta-2-Glycoprotein I IgM Abs Less than 2.9 U/mL (<7 Negative)
--- NOTE | 2018-04-23 20:40 | EKG ---
Test Reason : Blood Pressure : / mmHG Vent. Rate : 068 BPM Atrial Rate : 068 BPM P-R Int : 126 ms QRS Dur : 076 ms QT Int : 402 ms P-R-T Axes : 074 017 069 degrees QTc Int : 427 ms Normal sinus rhythm Normal ECG When compared with ECG of 20-APR-2018 14:38, (Unconfirmed) No significant change was found Confirmed by Fortunato TALAVERA ([id number]) on 04/23/2018 8:40:33 PM Referred By: LONNIE Confirmed By:Fortunato TALAVERA
== END 2018-04-22 18:27 | disposition home or self-care (01) | DRG 545 ==
LOC: T4-B 14:13 → 2SE 04-21 14:59
PROVIDERS: ADMIT Internal Medicine; ATTEND Internal Medicine
PROC: 0HB5XZX Excision of Chest Skin, External Approach, Diagnostic (ICD-10-PCS; principal; 2018-04-19)
DX: M32.9 Systemic lupus erythematosus, unspecified (principal); G93.41 Metabolic encephalopathy; E87.1 Hypo-osmolality and hyponatremia; E44.0 Moderate protein-calorie malnutrition; Z68.1 Body mass index [BMI] 19.9 or less, adult; N17.9 Acute kidney failure, unspecified; F41.9 Anxiety disorder, unspecified; F32.9 Major depressive disorder, single episode, unspecified; I95.9 Hypotension, unspecified; E86.0 Dehydration; K12.1 Other forms of stomatitis; D89.9 Disorder involving the immune mechanism, unspecified; R94.5 Abnormal results of liver function studies; E87.6 Hypokalemia; R56.9 Unspecified convulsions; Z88.0 Allergy status to penicillin; Z88.2 Allergy status to sulfonamides
CPT/HCPCS: 36415; 70553; 74170; 76705; 80048; 80053; 80061; 80074; 80076; 81001; 82043; 82085; 82550; 82595; 83615; 83735; 85025; 85060; 85240; 85250; 85598; 85610; 85613; 85730; 86146; 86147; 86160; 86225; 86787; 87040; 87086; 87529; 87798; 88305; 93005; 93010; 95816; 95819; A9579; J0133; J1100; J1650; J2001; J2060; J2405; J7050; J7506; J7517